=== PATIENT | male | born 1940 | race Caucasian/White ===

== ENCOUNTER 2018-10-19 13:03 | Inpatient (IN) | payer OTHER ==
[2018-10-19 13:24] LABS: Absolute Lymphocytes (CBC) 0.9 K/uL (0.7-4.9); Absolute Monocytes 0.5 K/uL (0.1-1.3); Absolute Neutrophil 6.1 K/uL (1.8-8.0); Basophils % 0.8 % (0-1.3); Eosinophils % 0.7 % (0-4.4); Hematocrit 51.9 % (39.6-49.0); Lymphocytes % 11.4 % (15.3-44.8); MPV 9.6 fL (7.6-11.3); Monocytes % 7.2 % (3.3-12.3); RBC Red Blood Cell Count 5.12 M/uL (4.33-5.43)
[2018-10-19] MEDS ORDERED: NA CHLORIDE 0.9% 250 ML ONE ×3 (13:33→14:26)
[2018-10-19 13:40] LABS: Troponin (Emerg Dept Use Only) 0.13 ng/mL (0.0-0.045)
[2018-10-19] MEDS ORDERED: FUROSEMIDE 20 MG TABLET ONE (14:04)
--- NOTE | 2018-10-19 14:25 | RAD REPORT ---
EXAM DESCRIPTION: RAD - Chest Single View - 10/19/2018 1:55 pm CLINICAL HISTORY: Dyspnea, shortness of breath COMPARISON: October 04, 2018 TECHNIQUE: AP portable chest image was obtained 1352 hours . FINDINGS: Lung volumes are low accentuating interstitial opacification. Cardiac silhouette is enlarg ed, again accentuated by shallow inspiration. Vasculature and interstitial markings overall are promi nent and favor a mild failure/ volume overload. No measurable pleural effusion and no pneumothorax. No acute bony abnormality seen. No acute aortic findings suspected. IMPRESSION: Mild CHF/volume overload pattern accentuated by body habitus, portable technique and sha llow inspiration.
--- NOTE | 2018-10-19 14:36 | EDPHYS ---
Physician Documentation [facility] Name: Bj Mills Age: 77 yrs Sex: Male : 1940 Arrival Date: 10/19/2018 Time: 13:04 Bed 4 Private MD: ED Physician Deng Joseph HPI: 10/19 13:17 This 77 yrs old Male presents to ER via EMS with complaints of Shortness Of rn Breath. 13:17 The patient has shortness of breath at rest, with light activity. Onset: The rn symptoms/episode began/occurred at an unknown time. Duration: The symptoms are continuous. The patient's shortness of breath is aggravated by exertion, light activity, walking. Associated signs and symptoms: Pertinent positives: non-productive cough, Pertinent negatives: chest pain, fever, hemoptysis, loss of consciousness. Severity of symptoms: At their worst the symptoms were moderate in the emergency department the symptoms have improved. The patient has experienced similar episodes in the past. The patient has been recently seen by a physician:. EMS reports patient had just gotten back from cardiology appt, fell to ground because sob and weakness, no LOC, no injury from fall, called for lift assist, but EMS noted dyspnea and couldn't walk back to house alone without rest and assistance. O2 sat was 87%, placed on CPAP after couldn't tolerate BIPAP, feels a little better. . Historical: - Allergies: 13:10 No Known Allergies; hj - Home Meds: 13:10 Novolin N 100 unit/mL Sub-Q susp twice a day [Active]; Plavix 75 mg Oral tab 1 tab once hj daily [Active]; isosorbide mononitrate 60 mg Oral Tb24 1 tab once daily [Active]; metoprolol tartrate 50 mg Oral tab 25 mg 2 times per day [Active]; furosemide 40 mg Oral tab 1 tab once daily [Active]; glimepiride 4 mg Oral tab 1 tab once daily [Active]; aspirin 81 mg Oral chew 1 tab once daily [Active]; citalopram 20 mg tab 1 tab once daily [Active]; [place] 10-325 mg Oral tab 1 tab twice a day [Active]; fentanyl 50 mcg/hr Topical pt72 1 patch every 72 hours [Active]; simvastatin 20 mg Oral tab 1 tab once daily [Active]; lisinopril 5 mg Oral tab 1 tab once daily [Active]; - PMHx: 13:10 Diabetes - NIDDM; hj 13:10 Hypertension; Hyperlipidemia; hj - PSHx: 13:10 None; hj - Immunization history:: Adult Immunizations not immunized. - Social history:: Smoking status: Patient/guardian denies using tobacco, Patient/guardian denies using alcohol. - Ebola Screening: : Patient negative for fever greater than or equal to 101.5 degrees Fahrenheit, and additional compatible Ebola Virus Disease symptoms Patient denies exposure to infectious person Patient denies travel to an Ebola-affected area in the 21 days before illness onset. - Family history:: not pertinent. - Hospitalizations: : No recent hospitalization is reported. ROS: 13:17 Constitutional: Negative for fever, chills, and weight loss, Eyes: Negative for injury, rn pain, redness, and discharge, Neck: Negative for injury, pain, and swelling, Cardiovascular: Negative for chest pain, palpitations,+ mild swelling Respiratory: + sob and cough Abdomen/GI: Negative for abdominal pain, nausea, vomiting, diarrhea, and constipation, MS/Extremity: Negative for injury and deformity, Skin: Negative for injury, rash, and discoloration, Neuro: + generalized weakness, no focal weakness or paresthesias Exam: 13:14 ECG was reviewed by the Attending Physician. rn 13:17 Constitutional: This is a well developed, well nourished patient who is awake, alert, rn on CPAP and requires assistance moving into bed from stretcher. Head/Face: Normocephalic, atraumatic. Eyes: Pupils equal round and reactive to light, extra-ocular motions intact. Lids and lashes normal. Conjunctiva and sclera are non-icteric and not injected. Cornea within normal limits. Periorbital areas with no swelling, redness, or edema. ENT: dry MM, no stridor Cardiovascular: Regular rate and rhythm. No pulse deficits. Respiratory: + mild tachypnea with diminished breath sounds at bases. Abdomen/GI: soft, non-tender MS/ Extremity: Pulses equal, no cyanosis. Neurovascular intact. Full, normal range of motion. Equal circumference. Neuro: Awake and alert, GCS 15, oriented to person, place, time, and situation. Cranial nerves II-XII grossly intact. Motor strength 5/5 in all extremities. Sensory grossly intact. Vital Signs: 13:12 BP 89 / 62; Pulse 74; Resp 24; Temp 97.4(O); Pulse Ox 97% on Nebulizer Mask; Weight hj 120.2 kg; Height 6 ft. 3 in. (190.50 cm); Pain 0/10; 13:34 BP 95 / 62; Pulse 76; Resp 20; Pulse Ox 96% on Nebulizer Mask; hj 13:45 BP 106 / 86; Pulse 88; Resp 18; Pulse Ox 98% on Nebulizer Mask; hj 13:49 Pulse Ox 97% on 2 lpm NC; hj 14:01 BP 79 / 89; Pulse 76; Resp 18; Pulse Ox 96% on 4 lpm NC; hj 14:08 BP 90 / 57; Pulse 77; Resp 18; Pulse Ox 93% on 4 lpm NC; hj 14:24 BP 104 / 89; Pulse 73; Resp 18; Pulse Ox 93% on 4 lpm NC; hj 14:43 BP 101 / 66; Pulse 76; Resp 18; Pulse Ox 93% on 4 lpm NC; hj 14:59 BP 102 / 56; Pulse 76; Resp 18; Pulse Ox 94% on 4 lpm NC; hj 13:12 Body Mass Index 33.12 (120.20 kg, 190.50 cm) hj MDM: 13:05 Patient medically screened. rn 14:33 Differential diagnosis: Anemia CHF exacerbation, Chronic Obstructive Pulmonary Disease rn Myocardial Infarction pneumonia, pulmonary edema, reactive airway disease. Data reviewed: vital signs, nurses notes, lab test result(s), EKG, radiologic studies, plain films, and as a result, I will admit patient. Counseling: I had a detailed discussion with the patient and/or guardian regarding: the historical points, exam findings, and any diagnostic results supporting the discharge/admit diagnosis, lab results, radiology results, the need for further work-up and treatment in the hospital. Response to treatment: the patient's symptoms have mildly improved after treatment, and as a result, I will admit patient. ED course: Pt with pulmonary edema, O2 87%, seen by Dr Villatoro recently and ECHO performed but unable to walk, no oxygen at home, will admit for further care. Improved BP with NS. . 10/19 13:06 Order name: BMP; Complete Time: 13:46 rn 04/04 13:06 Order name: CBC with Diff; Complete Time: 13:46 rn 10/19 13:06 Order name: XRAY CXR (1 view); Complete Time: 14:27 rn 10/19 13:06 Order name: NT PRO-BNP; Complete Time: 13:46 rn 10/19 13:06 Order name: Troponin (emerg Dept Use Only); Complete Time: 13:46 rn 10/19 13:06 Order name: EKG; Complete Time: 13:06 rn 10/19 13:06 Order name: Cardiac monitoring; Complete Time: 13:10 rn 10/19 13:06 Order name: EKG - Nurse/Tech; Complete Time: 13:10 rn 10/19 13:06 Order name: IV Saline Lock; Complete Time: 13:10 rn 10/19 13:06 Order name: Labs collected and sent; Complete Time: 13:23 rn 10/19 13:06 Order name: O2 Per Protocol; Complete Time: 13:10 rn 10/19 13:06 Order name: O2 Sat Monitoring; Complete Time: 13:10 rn EC:14 Rate is 76 beats/min. Rhythm is regular. QRS interval is normal. QT interval is rn prolonged. No Q waves. T waves are Normal. No ST changes noted. Clinical impression: NSR w/ Non-specific ST/T Changes. Interpreted by me. Administered Medications: 13:17 Drug: NS 0.9% 250 ml Route: IV; Rate: 1 bolus; Site: left wrist; hj 14:18 Follow up: IV Status: Completed infusion hj 13:49 Drug: LaSIX 20 mg Route: PO; hj 14:17 Follow up: Response: No adverse reaction hj 13:58 Drug: NS 0.9% 250 ml Route: IV; Rate: bolus; Site: left wrist; hj 14:18 Follow up: IV Status: Completed infusion hj 14:17 Drug: NS 0.9% 250 ml Route: IV; Rate: bolus; Site: left wrist; hj 14:34 Drug: Tylenol 650 mg Route: PO; hj 14:45 Follow up: Response: No adverse reaction; Pain is decreased hj Disposition: 10/19/18 14:35 Hospitalization ordered by Lucian Marsh for Inpatient Admission. Preliminary diagnosis are Pulmonary edema, Hypoxemia, Unspecified combined systolic (congestive) and diastolic (congestive) heart failure. - Bed requested for Telemetry/MedSurg (Inpatient). - Status is Inpatient Admission. hj - Condition is Stable. - Problem is an ongoing problem. - Symptoms have improved. UTI on Admission? No Signatures: Dispatcher [employer] EDDeng Schumacher MD MD rn Joaquin, Henry, RN RN hj Botello, Elizabeth eb Corrections: (The following items were deleted from the chart) 13:28 13:10 Home Meds: Unable to obtain; hj hj 15:02 14:35 Hospitalization Ordered by Lucian Marsh MD for Inpatient Admission. Preliminary eb diagnosis is Pulmonary edema; Hypoxemia; Unspecified combined systolic (congestive) and diastolic (congestive) heart failure. Bed requested for Telemetry/MedSurg (Inpatient). Status is Inpatient Admission. Condition is Stable. Problem is an ongoing problem. Symptoms have improved. UTI on Admission? No. rn 15:52 15:02 10/19/2018 14:35 Hospitalization Ordered by Lucian Marsh MD for Inpatient Admission. Preliminary diagnosis is Pulmonary edema; Hypoxemia; Unspecified combined systolic (congestive) and diastolic (congestive) heart failure. Bed requested for Telemetry/MedSurg (Inpatient). Status is Inpatient Admission. Condition is Stable. Problem is an ongoing problem. Symptoms have improved. UTI on Admission? No. eb
--- NOTE | 2018-10-19 14:36 | ER ---
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 Transition of care: patient was not received from another setting of care. Onset of symptoms was October 19, 2018. Risk Assessment: Do you want to hurt yourself or someone else? Patient reports no desire to harm self or others. Initial Sepsis Screen: Does the patient meet any 2 criteria? Yes Does the patient have a suspected source of infection? Yes:. Care prior to arrival: None. 13:05 Method Of Arrival: EMS: [facility] 13:05 Acuity: SIMRAN 2 hj Triage Assessment: 13:11 General: Appears in no apparent distress. uncomfortable, Behavior is calm, cooperative, hj appropriate for age. Respiratory: Reports shortness of breath labored breathing Onset: The symptoms/episode began/occurred today, the patient has severe shortness of breath. Historical: - Allergies: 13:10 No Known Allergies; hj - Home Meds: 13:10 Novolin N 100 unit/mL Sub-Q susp twice a day [Active]; Plavix 75 mg Oral tab 1 tab once hj daily [Active]; isosorbide mononitrate 60 mg Oral Tb24 1 tab once daily [Active]; metoprolol tartrate 50 mg Oral tab 25 mg 2 times per day [Active]; furosemide 40 mg Oral tab 1 tab once daily [Active]; glimepiride 4 mg Oral tab 1 tab once daily [Active]; aspirin 81 mg Oral chew 1 tab once daily [Active]; citalopram 20 mg tab 1 tab once daily [Active]; [place] 10-325 mg Oral tab 1 tab twice a day [Active]; fentanyl 50 mcg/hr Topical pt72 1 patch every 72 hours [Active]; simvastatin 20 mg Oral tab 1 tab once daily [Active]; lisinopril 5 mg Oral tab 1 tab once daily [Active]; - PMHx: 13:10 Diabetes - NIDDM; hj 13:10 Hypertension; Hyperlipidemia; hj - PSHx: 13:10 None; hj - Immunization history:: Adult Immunizations not immunized. - Social history:: Smoking status: Patient/guardian denies using tobacco, Patient/guardian denies using alcohol. - Ebola Screening: : Patient negative for fever greater than or equal to 101.5 degrees Fahrenheit, and additional compatible Ebola Virus Disease symptoms Patient denies exposure to infectious person Patient denies travel to an Ebola-affected area in the 21 days before illness onset. - Family history:: not pertinent. - Hospitalizations: : No recent hospitalization is reported. Screenin:11 Abuse screen: Denies threats or abuse. Denies injuries from another. Nutritional hj screening: No deficits noted. Tuberculosis screening: No symptoms or risk factors identified. Fall Risk Fall in past 12 months (25 points). Assessment: 13:11 Pain: Denies pain. Cardiovascular: Rhythm is regular. Respiratory: Airway is hj compromised Trachea midline Respiratory effort is labored, Respiratory pattern is regular, tachypnea Breath sounds are diminished bilaterally. 13:11 General: Appears in no apparent distress. uncomfortable, Behavior is calm, cooperative, hj appropriate for age. Neuro: Level of Consciousness is awake, alert, obeys commands, Oriented to person, place, time, situation, Appropriate for age. GI: No signs and/or symptoms were reported involving the gastrointestinal system. : No signs and/or symptoms were reported regarding the genitourinary system. EENT: No signs and/or symptoms were reported regarding the EENT system. Derm: No signs and/or symptoms reported regarding the dermatologic system. Musculoskeletal: No signs and/or symptoms reported regarding the musculoskeletal system. 13:38 Reassessment: Patient and/or family updated on plan of care and expected duration. Pain hj level reassessed. Patient is alert, oriented x 3, equal unlabored respirations, skin warm/dry/pink. awaiting results and POC; provider in room with ;. 13:48 Reassessment: Patient and/or family updated on plan of care and expected duration. Pain hj level reassessed. Patient is alert, oriented x 3, equal unlabored respirations, skin warm/dry/pink. Patient states feeling better. Patient states symptoms have improved. 14:08 Reassessment: awaiting results;. hj 14:59 Reassessment: Patient and/or family updated on plan of care and expected duration. Pain hj level reassessed. Patient is alert, oriented x 3, equal unlabored respirations, skin warm/dry/pink. awaiting room placement;. Vital Signs: 13:12 BP 89 / 62; Pulse 74; Resp 24; Temp 97.4(O); Pulse Ox 97% on Nebulizer Mask; Weight hj 120.2 kg; Height 6 ft. 3 in. (190.50 cm); Pain 0/10; 13:34 BP 95 / 62; Pulse 76; Resp 20; Pulse Ox 96% on Nebulizer Mask; hj 13:45 BP 106 / 86; Pulse 88; Resp 18; Pulse Ox 98% on Nebulizer Mask; hj 13:49 Pulse Ox 97% on 2 lpm NC; hj 14:01 BP 79 / 89; Pulse 76; Resp 18; Pulse Ox 96% on 4 lpm NC; hj 14:08 BP 90 / 57; Pulse 77; Resp 18; Pulse Ox 93% on 4 lpm NC; hj 14:24 BP 104 / 89; Pulse 73; Resp 18; Pulse Ox 93% on 4 lpm NC; hj 14:43 BP 101 / 66; Pulse 76; Resp 18; Pulse Ox 93% on 4 lpm NC; hj 14:59 BP 102 / 56; Pulse 76; Resp 18; Pulse Ox 94% on 4 lpm NC; hj 13:12 Body Mass Index 33.12 (120.20 kg, 190.50 cm) hj ED Course: 13:04 Patient arrived in ED. ss 13:05 Deng Joseph MD is Attending Physician. rn 13:05 Edgar Chamberlain RN is Primary Nurse. hj 13:07 Triage completed. hj 13:12 Arm band placed on right wrist. hj 13:12 Patient has correct armband on for positive identification. Placed in gown. Bed in low hj position. Call light in reach. Side rails up X 1. 13:23 Inserted saline lock: 20 gauge in left wrist, using aseptic technique. pc1 13:23 EKG done, by control valve technician. reviewed by Deng Joseph MD. sm3 13:56 XRAY CXR (1 view) In Process Unspecified. EDMS 14:35 Lucian Marsh MD is Hospitalizing Provider. rn Administered Medications: 13:17 Drug: NS 0.9% 250 ml Route: IV; Rate: 1 bolus; Site: left wrist; hj 14:18 Follow up: IV Status: Completed infusion hj 13:49 Drug: LaSIX 20 mg Route: PO; hj 14:17 Follow up: Response: No adverse reaction hj 13:58 Drug: NS 0.9% 250 ml Route: IV; Rate: bolus; Site: left wrist; hj 14:18 Follow up: IV Status: Completed infusion hj 14:17 Drug: NS 0.9% 250 ml Route: IV; Rate: bolus; Site: left wrist; hj 14:34 Drug: Tylenol 650 mg Route: PO; hj 14:45 Follow up: Response: No adverse reaction; Pain is decreased hj Outcome: 14:35 Decision to Hospitalize by Provider. rn 15:52 Patient left the ED. hj Signatures: Dispatcher [employer] EDMS Deng Joseph MD MD rn Smirch, Shelby, RN RN ss Edgar hCamberlain RN RN Chapis Burt sm3 Martell Vázquez pc1 Corrections: (The following items were deleted from the chart) 13:28 13:10 Home Meds: Unable to obtain; hj hj 14:16 14:08 BP 90 / 57; Pulse 77bpm; Resp 18bpm; Pulse Ox 98% 4 lpm Nasal Cannula; hj hj
[2018-10-19] MEDS ORDERED: ACETAMINOPHEN 325 MG TABLET ONE (14:45)
[2018-10-19] MEDS ORDERED: IPRATROPIUM BROM 0.5MG/2.5ML NEB PRN (15:55)
[2018-10-19] MEDS ORDERED: ALBUTEROL 2.5 MG/3 ML NEB SOL NEB PRN (15:55)
[2018-10-19] MEDS ORDERED: ONDANSETRON 4 MG/2 ML VIAL IV PRN (15:55)
[2018-10-19] MEDS ORDERED: GLUCAGON 1 MG/VIAL IM PRN (18:20)
[2018-10-19] MEDS ORDERED: D50W 25 GM/50 ML SYRINGE IV PRN (18:20)
[2018-10-19] MEDS ORDERED: FENTANYL 50 MCG/PATCH TD SCH (19:00)
[2018-10-19] MEDS: ATORVASTATIN 10 MG TAB PO SCH (20:29)
[2018-10-19] MEDS: INSULIN -REGULAR HUMAN 50 UNIT/0.5 ML ML SQ SCH (20:56)
[2018-10-19] MEDS ORDERED: HOME MED 1 EA UNK (Simvastatin [Simvastatin] 20 MG) PO SCH (21:00)
[2018-10-19 22:05] LABS: Urine Appearance CLEAR; Urine Bilirubin NEGATIVE (NEG); Urine Blood NEGATIVE (NEG); Urine Color YELLOW; Urine Glucose NEGATIVE (NEG); Urine Protein 2+ (NEG); Urine Specific Gravity 1.015 (1.005-1.030)
[2018-10-19 22:17] LABS: Urine Microscopic Reflex ORDER UMIC
[2018-10-19 22:31] LABS: Urine Bacteria 20-50 /HPF (NONE SEEN); Urine Culture Reflex Order REFLEXED; Urine Mucus 2+ /HPF (NONE SEEN); Urine RBC <5 /HPF (NONE SEEN)
[2018-10-20 04:59] LABS: Potassium 4.5 mmol/L (3.5-5.1)
[2018-10-20] MEDS: INSULIN -REGULAR HUMAN 50 UNIT/0.5 ML ML SQ SCH ×4 (07:30→20:56)
[2018-10-20] MEDS ORDERED: ACETYLCYST 20% 800 MG/4 ML VIAL PO ONE (07:42)
--- NOTE | 2018-10-20 08:57 | ECHO ---
HEIGHT: 6 ft 3 in WEIGHT: 265 lb 0 oz DATE OF STUDY: 10/20/[address]: Freddy Villatoro MD 2-DIMENSIONAL: YES M.MODE: YES DOPPLER: YES COLOR FLOW: YES TDS: NO PORTABLE: NO DEFINITY: NO BUBBLE STUDY: NO DIAGNOSIS: EVALUATE LEFT VENTRICULAR EJECTION FRACTION CARDIAC HISTORY: CATHERIZATION: YES SURGERY: NO PROSTHETIC VALVE: NO PACEMAKER: NO MEASUREMENTS (cm) DIASTOLIC (NORMALS) SYSTOLIC (NORMALS) IVSd 1.3 (0.6-1.2) LA Diam (1.9-4.0) LVEF 60-69% LVIDd 3.9 (3.5-5.7) LVIDs 3.0 (2.0-3.5) %FS 23% LVPWd 1.3 (0.6-1.2) Ao Diam 3.4 (2.0-3.7) 2 DIMENSIONAL ASSESSMENT: RIGHT ATRIUM: DILATED LEFT ATRIUM: DILATED RIGHT VENTRICLE: DILATED LEFT VENTRICLE: LEFT VENTRICULAR HYPERTROPHY TRICUSPID VALVE: NORMAL MITRAL VALVE: NORMAL PULMONIC VALVE: NORMAL AORTIC VALVE: TRILEAFLET, MILD THICKENING PERICARDIAL EFFUSION: NONE AORTIC ROOT: NORMAL LEFT VENTRICULAR WALL MOTION: NORMAL DOPPLER/COLOR FLOW: MILD TRICUSPID REGURGITATION. MILD PULMONARY HYPERTENSION. ESTIMATED RIGHT VENTRICULAR SYSTOLIC PRESSURE 43 mmHg. COMMENTS: NORMAL LEFT VENTRICULAR EJECTION FRACTION. LEFT VENTRICULAR HYPERTROPHY. DILATED LEFT ATRIUM, RIGHT ATRIUM AND RIGHT VENTRICLE. AORTIC SCLEROSIS WITH NO AORTIC STENOSIS OR AORTIC REGURGITATION. TECHNOLOGIST: Agustina NELSON
[2018-10-20] MEDS ORDERED: LIDOCAINE 1% MPF 5 ML VIAL ONE (08:58)
[2018-10-20] MEDS ORDERED: HEPA 1000U/500MLS 2,000 UNIT/1,000 ML BAG IV ONE (08:58)
[2018-10-20] MEDS ORDERED: HOME MED 1 EA UNK (Citalopram Hydrobromide [Citalopram Hbr] 20 MG) PO SCH (09:00)
[2018-10-20] MEDS ORDERED: ASPIRIN 81 MG CHEWABLE TABLET PO SCH (09:00)
[2018-10-20] MEDS ORDERED: CITALOPRAM 10 MG TABLET PO SCH (09:00)
[2018-10-20] MEDS ORDERED: CLOPIDOGREL 75 MG TABLET PO SCH (09:00)
[2018-10-20] MEDS ORDERED: NA CHLORIDE 0.9% 500 ML ONE (09:40)
[2018-10-20] MEDS ORDERED: HEPARIN 5000 UNIT/ML 1 ML VIAL ONE (09:53)
[2018-10-20] MEDS ORDERED: FENTANYL CITR 100 MCG/2 ML ONE (09:53)
[2018-10-20] MEDS ORDERED: MIDAZOLAM HCL 2 MG/2 ML INJ ONE (09:53)
[2018-10-20] MEDS ORDERED: NITROGLYCERIN 100 MCG/ML SYR (for cath lab use only) IV ONE (09:54)
[2018-10-20] MEDS ORDERED: NA CHLORIDE 0.9% 0 ML IV ONE (09:54)
[2018-10-20] MEDS ORDERED: NICARDIPINE HCL 25 MG/10 ML IV ONE (09:54)
[2018-10-20] MEDS ORDERED: ATROPINE SULF 1 MG/10 ML SYR IV ONE (09:54)
[2018-10-20] MEDS ORDERED: NITROGLYCERIN/D5W 25 MG/250 ML BTL IV ONE (09:54)
--- NOTE | 2018-10-20 12:27 | CON ---
History Of Present Illness: Mr. Mills is 77, he came to the hospital because he was trying to get himself into a pickup truck, struggled, got weak and fell to the ground. EMS was called. He was br ought here. Denies having any chest pain, but his x-ray showed possible pulmonary edema, although it noted there is a possibility that it is under-penetration, poor inspiratory effort and a portable te chnique that made it look like that Mr. Mills has a history of CAD. He had a cardiac cath and rosita nt in 2005. Since then, nobody has looked at his heart. He has diabetes, obesity, renal insufficien cy, hypertension, dyslipidemia. Outpatient, he takes simvastatin, lisinopril, Lasix, Plavix, aspirin , fentanyl, insulin, hydrocodone, citalopram, glimepiride, metoprolol, isosorbide mononitrate. I saw him 2 days ago in my office and stopped one of his medicines Cardizem because of symptoms that sound like heart failure and symptoms of dizziness with demonstrated hypotension. His blood pressure has been better since we stopped cardia, so I continue to think it was a correct thing to do to stop card ia. We need to do an echo, need to do a cardiac cath. He will be at risk of developing worsening re nal function after the cardiac cath. His creatinine is 1.98. It is in this situation where unstable heart disease could be a more serious problem very quickly if we do not do everything that is possib le to improve that. So, I recommend a cardiac cath, possible stent. We will do an echocardiogram to minimize the amount of contrast as much as possible. The patient seems to understand the procedure, potential benefits, indications, risks, and agrees to proceed. Physical Examination: Lungs: His lungs are clear. Heart: Reveals a regular rate and rhythm. Vital Signs: Blood pressure is 108/55, heart rate 86, temperature 98.1. I would recommend that we do a cardiac cath later today. JOHN/ELIDA Voice ID: [id number] Report ID: [id number]
[2018-10-20] MEDS: ATORVASTATIN 10 MG TAB PO SCH (20:55)
--- NOTE | 2018-10-20 22:51 | OP ---
Surgeon: Freddy Villatoro MD Procedures: Left heart catheterization, coronary angiography. No LV gram was done. Findings: The patient has severe 3-vessel CAD and needs bypass surgery. His right coronary artery h as a 70% ostial stenosis in the midportion, sequential 90% stenosis. There is an old stent in the re gion and the ostium of the posterior descending artery has a 90% stenosis. The left main is very irr egular, free of any significant stenosis. The circumflex is large, ectatic, irregular, but no signif icant stenosis. The ostium of the LAD has a 70% stenosis. The mid LAD has a 70% stenosis. The osti um of the ramus intermedius artery, a very large artery, has an ostial 70% stenosis. Left ventriculo gram was not done, but we measured pressures and found the left ventricular end-diastolic pressure at 0, no pullback gradient, normal pressures. Procedure In Detail: The patient was brought to the cardiac medical laboratory technicians in a fasting state. He had williams dence of a non-ST elevation SC associated with a fall. Prepared and draped in usual sterile fashion, sedated with Versed and fentanyl. Right radial approach was used. Right radial artery was identifi ed through palpation, anesthetized with 1% lidocaine, entered with a 21-gauge needle, cannulated with a 0.021 inch diameter guidewire. A 6-[place] Terumo sheath was used. As soon as the sheath was in p lace, it was flushed and we gave the radial cocktail consisting of nicardipine, heparin, nitroglyceri n. The TIG catheter was guided into the ascending aorta and allowed us to measure LV pressures, eliazar ogram of the right coronary artery and left coronary artery. At the end of the procedure, the cathet er was removed, sheath was removed, and the arteriotomy was closed with a TR band. Estimated Blood Loss: 5 cc. Complications: None. Water Quality Control Engineer: Gilles Carrillo. GERRY Voice ID: [id number] Report ID: [id number]
--- NOTE | 2018-10-21 01:10 | HP ---
Date of Admission: 10/19/2018 Chief Complaint: Chest pain, shortness of breath. History Of Present Illness: A 77-year-old male was brought to the emergency room because of shortnes s of breath and chest pain. The patient's evaluation showed evidence of heart failure as well as namita vated troponin. The patient is admitted. The patient denied any history of fever, chills, rigors. Past Medical History: Extensive, includes history of type 2 diabetes requiring insulin, hypertension , history of osteoarthritis. Surgical History: Negative. Home Medicines: Please refer to the chart. Review of Systems: The patient denied any history of fever, chills, rigors. Physical Examination: General: Revealed a 77-year-old male, not in acute distress. HEENT: Negative. Neck: Supple. JVD positive. Chest: Scattered wheezes bilaterally. Heart: Irregularity noted. Abdomen: Soft. Extremities: Mild pedal edema. Laboratory Data: Troponin over 3. White count, hemoglobin normal. Chem profile; BUN 35, creatinine 1.9. Chest x-ray, pulmonary congestion. Assessment: 1.Nontransmural IN. 2.Congestive heart failure. 3.Type 2 diabetes. 4.Chronic renal failure. 5.Osteoarthritis. Plan: The patient is scheduled for cardiac cath today to see his coronary anatomy. There is Cardiol ogy consult. Meanwhile, the patient will be put on insulin sliding scale. His blood pressure is low . Some of his medications will be on hold. WILBER/ELIDA Voice ID: [id number]
[2018-10-22] MEDS ORDERED: HOME MED 1 EA UNK (Fentanyl [Duragesic] 1 EACH) TD SCH (09:00)
--- NOTE | 2018-10-24 11:22 | EKG ---
Test Date: 2018-10-19 Test Time: 13:06:48 Public Message Service Supervisor: BRIDGETTE MEASUREMENT RESULTS: Intervals: Rate: 76 ID: [id number] QRSD: 100 QT: 460 QTc: 517 [place]: P: 79 ID: [id number] QRS: 126 T: 140 INTERPRETIVE STATEMENTS: Normal sinus rhythm Cannot rule out Anterior infarct, age undetermined Prolonged QT Abnormal ECG Compared to ECG 09/04/2006 06:12:20 Prolonged QT interval now present Sinus tachycardia no longer present Ventricular premature complex(es) no longer present Atrial premature complex(es) no longer present Myocardial infarct finding still present Electronically Signed On 10-19-18 16:26:11 CDT by Freddy Villatoro
== END 2018-10-20 21:21 | disposition short-term general hospital (02) | DRG 282 ==
LOC: ER 13:03 → ERHOLD 14:43 → 2ND 15:33
PROVIDERS: ADMIT Internal Medicine; ATTEND Internal Medicine
PROC: 4A023N7 Measurement of Cardiac Sampling and Pressure, Left Heart, Percutaneous Approach (ICD-10-PCS; principal; 2018-10-20)
PROC: B211YZZ Fluoroscopy of Multiple Coronary Arteries using Other Contrast (ICD-10-PCS; 2018-10-20)
DX: I21.4 Non-ST elevation (NSTEMI) myocardial infarction (principal); I25.10 Atherosclerotic heart disease of native coronary artery without angina pectoris; Z95.5 Presence of coronary angioplasty implant and graft; E11.9 Type 2 diabetes mellitus without complications; Z79.4 Long term (current) use of insulin; M19.90 Unspecified osteoarthritis, unspecified site; E78.5 Hyperlipidemia, unspecified
CPT/HCPCS: 36415; 71045; 80048; 81003; 81015; 82962; 83880; 84484; 85025; 87086; 87088; 93005; 93306; 93458; 96365; 99284; C1893; J0583; J1644; J2250; J3010

== ENCOUNTER 2019-01-28 18:21 | Inpatient (IN) | payer OTHER ==
--- OUTSIDE RECORDS SUMMARY | 2019-01-28 18:24 | XMS REPORT | Clinical Summary ---
:1940 Author Organization [facility] Address [address] [place] [address] Care Team Providers Name Role Phone Asked, No Pcp Primary Care Provider Unavailable Allergies No Known Allergies Medications Medication Sig Dispensed Refills Start Date End Date Status HYDROcodone-acetami Take 1 tablet 0 Active nophen (NORCO) by mouth 2 10-325 mg per (two) times a tablet day. aspirin (ECOTRIN) Take 81 mg by 0 Active 81 MG enteric mouth daily. coated tablet citalopram (CeleXA) Take 20 mg by 0 Active 20 MG tablet mouth daily. fentaNYL Place 1 patch 0 Active (DURAGESIC) 25 on the skin mcg/hr every third day. glimepiride Take 4 mg by 0 Active (AMARYL) 4 MG mouth 2 (two) tablet times a day. insulin NPH Inject 40 0 Active (HumuLIN-N) 100 Units under unit/mL injection the skin daily before dinner. isosorbide Take 60 mg by 0 Active mononitrate (IMDUR) mouth daily. 60 MG 24 hr tablet clopidogrel Take 75 mg by 0 Active (PLAVIX) 75 mg mouth daily. tablet metoprolol Take 0.5 30 tablet 10/28/2018 10/28/2019 Active succinate XL tablets (12.5 (TOPROL-XL) 25 mg mg total) by 24 hr tablet mouth 2 (two) times a day. atorvastatin Take 1 tablet 30 tablet 10/28/2018 10/28/2019 Active (LIPITOR) 80 MG (80 mg total) tablet by mouth nightly. furosemide (LASIX) Take 40 mg by 0 10/28/2018 Discontinued 40 mg tablet mouth 2 (two) times a day. lisinopril Take 5 mg by 0 10/28/2018 Discontinued (PRINIVIL,ZESTRIL) mouth nightly. 5 mg tablet simvastatin (ZOCOR) Take 20 mg by 0 10/28/2018 Discontinued 20 MG tablet mouth nightly. metoprolol Take 25 mg by 0 10/28/2018 Discontinued succinate XL mouth 2 (two) (TOPROL-XL) 25 mg times a day. 24 hr tablet atorvastatin Take 1 tablet 30 tablet 11 10/27/2018 10/28/2018 Discontinued (LIPITOR) 80 MG (80 mg total) tablet by mouth nightly. metoprolol Take 0.5 30 tablet 11 10/27/2018 10/28/2018 Discontinued succinate XL tablets (12.5 (TOPROL-XL) 25 mg mg total) by 24 hr tablet mouth 2 (two) times a day. torsemide (DEMADEX) Take 1 tablet 28 tablet 0 10/27/2018 10/28/2018 Discontinued 20 MG tablet (20 mg total) by mouth 2 (two) times a day for 14 days. torsemide (DEMADEX) Take 1 tablet 28 tablet 0 10/28/2018 11/11/2018 20 MG tablet (20 mg total) by mouth 2 (two) times a day for 14 days. 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 Never 10/20/2018 How many drinks containing alcohol do you have on a typical Not asked day when you are drinking? How often do you have six or more drinks on one occasion? Not asked Sex Assigned at Date Recorded Not on file Job Start Date Occupation Industry Not on file Not on file Not on file Travel History Travel Start Travel End No recent travel history available. Last Filed Vital Signs Vital Sign Reading Time Taken Blood Pressure 100/58 10/28/2018 7:45 PM CDT Pulse 91 10/28/2018 7:45 PM CDT Temperature 36.3 C (97.3 F) 10/28/2018 7:45 PM CDT Respiratory Rate 18 10/28/2018 7:45 PM CDT Oxygen Saturation 98% 10/28/2018 7:45 PM CDT Inhaled Oxygen Concentration - - Weight 126 kg (278 lb 11.2 oz) 10/27/2018 5:00 AM CDT Height - - Body Mass Index - - Plan of Treatment Health Maintenance Due Date Last Done Comments DIABETIC RETINAL EYE EXAM 1940 DIABETIC FOOT EXAM 1950 URINE MICROALBUMIN 1952 COLONOSCOPY SCREENING 1992 SHINGLES VACCINES (#1) 1992 65+ PNEUMOCOCCAL VACCINE (1 of 2 - PCV13) 12/30/2007 INFLUENZA VACCINE 02/15/2019 Procedures Procedure Name Priority Date/Time Associated Comments Diagnosis POC GLUCOSE Routine 10/28/2018 5:26 Results for this PM CDT procedure are in the results section. POC GLUCOSE Routine 10/28/2018 11:46 Results for this AM CDT procedure are in the results section. POC GLUCOSE Routine 10/28/2018 7:47 Results for this AM CDT procedure are in the results section. POC GLUCOSE Routine 10/27/2018 8:54 Results for this PM CDT procedure are in the results section. POC GLUCOSE Routine 10/27/2018 5:30 Results for this PM CDT procedure are in the results section. POC GLUCOSE Routine 10/27/2018 11:37 Results for this AM CDT procedure are in the results section. POC GLUCOSE Routine 10/27/2018 7:18 Results for this AM CDT procedure are in the results section. POC GLUCOSE Routine 10/26/2018 8:53 Results for this PM CDT procedure are in the results section. POC GLUCOSE Routine 10/26/2018 5:16 Results for this PM CDT procedure are in the results section. POC GLUCOSE Routine 10/26/2018 12:15 Results for this PM CDT procedure are in the results section. XR CHEST 1 VW PORTABLE STAT 10/26/2018 11:11 Results for this AM CDT procedure are in the results section. ESTIMATED GFR Routine 10/26/2018 10:06 Results for this AM CDT procedure are in the results section. BASIC METABOLIC PANEL Routine 10/26/2018 10:06 Results for this AM CDT procedure are in the results section. POC GLUCOSE Routine 10/26/2018 7:44 Results for this AM CDT procedure are in the results section. POC GLUCOSE Routine 10/25/2018 9:03 Results for this PM CDT procedure are in the results section. POC GLUCOSE Routine 10/25/2018 5:13 Results for this PM CDT procedure are in the results section. POC GLUCOSE Routine 10/25/2018 11:50 Results for this AM CDT procedure are in the results section. POC GLUCOSE Routine 10/25/2018 7:46 Results for this AM CDT procedure are in the results section. ESTIMATED GFR Routine 10/25/2018 4:14 Results for this AM CDT procedure are in the results section. BASIC METABOLIC PANEL Routine 10/25/2018 4:14 Results for this AM CDT procedure are in the results section. HC COMPLETE BLD COUNT Routine 10/25/2018 4:00 Results for this W/AUTO DIFF AM CDT procedure are in the results section. POC GLUCOSE Routine 10/24/2018 8:49 Results for this PM CDT procedure are in the results section. POC GLUCOSE Routine 10/24/2018 5:10 Results for this PM CDT procedure are in the results section. POC GLUCOSE Routine 10/24/2018 1:06 Results for this PM CDT procedure are in the results section. US ABDOMINAL WITH LIVER Routine 10/24/2018 9:17 Results for this ELASTOGRAPHY AM CDT procedure are in the results section. POC GLUCOSE Routine 10/24/2018 7:45 Results for this AM CDT procedure are in the results section. HC COMPLETE BLD COUNT Routine 10/24/2018 4:23 Results for this W/AUTO DIFF AM CDT procedure are in the results section. SEDIMENTATION RATE Routine 10/24/2018 4:23 Results for this AM CDT procedure are in the results section. ESTIMATED GFR Routine 10/24/2018 4:00 Results for this AM CDT procedure are in the results section. IONIZED CALCIUM Routine 10/24/2018 4:00 Results for this AM CDT procedure are in the results section. PHOSPHORUS LEVEL Routine 10/24/2018 4:00 Results for this AM CDT procedure are in the results section. MAGNESIUM LEVEL Routine 10/24/2018 4:00 Results for this AM CDT procedure are in the results section. COMPREHENSIVE METABOLIC Routine 10/24/2018 4:00 Results for this PANEL AM CDT procedure are in the results section. US VEIN MAPPING LOWER Routine 10/23/2018 10:10 Results for this EXTREMITY BILATERAL PM CDT procedure are in the results section. POC GLUCOSE Routine 10/23/2018 8:59 Results for this PM CDT procedure are in the results section. NM LUNG VENTILATION STAT 10/23/2018 6:48 Results for this PERFUSION PM CDT procedure are in the results section. SCL-70 ANTIBODY Routine 10/23/2018 6:32 Results for this PM CDT procedure are in the results section. SS-B ANTIBODY Routine 10/23/2018 6:32 Results for this PM CDT procedure are in the results section. SS-A ANTIBODY Routine 10/23/2018 6:32 Results for this PM CDT procedure are in the results section. HIV AG/AB COMBINATION Routine 10/23/2018 6:31 Results for this PM CDT procedure are in the results section. CRP HIGH SENSITIVITY Routine 10/23/2018 6:31 Results for this PM CDT procedure are in the results section. LUIS CARLOS Routine 10/23/2018 6:31 Results for this PM CDT procedure are in the results section. POC GLUCOSE Routine 10/23/2018 5:49 Results for this PM CDT procedure are in the results section. POC GLUCOSE Routine 10/23/2018 11:54 Results for this AM CDT procedure are in the results section. US CAROTID DUPLEX Routine 10/23/2018 11:00 Results for this BILATERAL AM CDT procedure are in the results section. POC GLUCOSE Routine 10/23/2018 8:46 Results for this AM CDT procedure are in the results section. POC GLUCOSE Routine 10/23/2018 8:05 Results for this AM CDT procedure are in the results section. ESTIMATED GFR Routine 10/23/2018 4:00 Results for this AM CDT procedure are in the results section. T4, FREE Routine 10/23/2018 4:00 Results for this AM CDT procedure are in the results section. THYROID STIMULATING Routine 10/23/2018 4:00 Results for this HORMONE AM CDT procedure are in the results section. IONIZED CALCIUM Routine 10/23/2018 4:00 Results for this AM CDT procedure are in the results section. PHOSPHORUS LEVEL Routine 10/23/2018 4:00 Results for this AM CDT procedure are in the results section. MAGNESIUM LEVEL Routine 10/23/2018 4:00 Results for this AM CDT procedure are in the results section. COMPREHENSIVE METABOLIC Routine 10/23/2018 4:00 Results for this PANEL AM CDT procedure are in the results section. HC COMPLETE BLD COUNT Routine 10/23/2018 4:00 Results for this W/AUTO DIFF AM CDT procedure are in the results section. VITAMIN D 25 HYDROXY Routine 10/23/2018 12:00 Results for this LEVEL AM CDT procedure are in the results section. POC GLUCOSE Routine 10/22/2018 8:58 Results for this PM CDT procedure are in the results section. XR KNEE 1 OR 2 VW RIGHT STAT 10/22/2018 8:42 Results for this PM CDT procedure are in the results section. XR HIP 2-3 VIEWS RIGHT STAT 10/22/2018 8:41 Results for this PM CDT procedure are in the results section. XR ELBOW 2 VW RIGHT STAT 10/22/2018 8:41 Results for this PM CDT procedure are in the results section. XR ANKLE 2 VW RIGHT STAT 10/22/2018 8:41 Results for this PM CDT procedure are in the results section. CT HEAD WO CONTRAST STAT 10/22/2018 7:43 Results for this PM CDT procedure are in the results section. POC GLUCOSE Routine 10/22/2018 6:21 Results for this PM CDT procedure are in the results section. POC GLUCOSE Routine 10/22/2018 5:10 Results for this PM CDT procedure are in the results section. ECHOCARDIOGRAM 2D Routine 10/22/2018 1:58 Results for this COMPLETE W MMODE PM CDT procedure are in SPECTRAL COLOR DOPPLER the results (00329) section. POC GLUCOSE Routine 10/22/2018 11:39 Results for this AM CDT procedure are in the results section. ESTIMATED GFR Routine 10/22/2018 10:28 Results for this AM CDT procedure are in the results section. COMPREHENSIVE METABOLIC Routine 10/22/2018 10:28 Results for this PANEL AM CDT procedure are in the results section. POC GLUCOSE Routine 10/22/2018 8:45 Results for this AM CDT procedure are in the results section. B NATRIURETIC PEPTIDE Routine 10/22/2018 4:15 Results for this AM CDT procedure are in the results section. TROPONIN Routine 10/22/2018 4:10 Results for this AM CDT procedure are in the results section. ESTIMATED GFR Routine 10/22/2018 4:10 Results for this AM CDT procedure are in the results section. IONIZED CALCIUM Routine 10/22/2018 4:10 Results for this AM CDT procedure are in the results section. PHOSPHORUS LEVEL Routine 10/22/2018 4:10 Results for this AM CDT procedure are in the results section. MAGNESIUM LEVEL Routine 10/22/2018 4:10 Results for this AM CDT procedure are in the results section. COMPREHENSIVE METABOLIC Routine 10/22/2018 4:10 Results for this PANEL AM CDT procedure are in the results section. HC COMPLETE BLD COUNT Routine 10/22/2018 4:10 Results for this W/AUTO DIFF AM CDT procedure are in the results section. CREATININE LEVEL, Routine 10/21/2018 11:30 Results for this URINE, RANDOM PM CDT procedure are in the results section. PROTEIN, URINE, RANDOM Routine 10/21/2018 11:30 Results for this PM CDT procedure are in the results section. URINALYSIS, AUTOMATED Routine 10/21/2018 11:30 Results for this WITH MICROSCOPY PM CDT procedure are in the results section. POC GLUCOSE Routine 10/21/2018 9:05 Results for this PM CDT procedure are in the results section. POC GLUCOSE Routine 10/21/2018 6:23 Results for this PM CDT procedure are in the results section. POC GLUCOSE Routine 10/21/2018 11:10 Results for this AM CDT procedure are in the results section. POC GLUCOSE Routine 10/21/2018 7:35 Results for this AM CDT procedure are in the results section. XR CHEST 1 VW PORTABLE STAT 10/21/2018 7:00 Results for this AM CDT procedure are in the results section. HEMOGLOBIN A1C Routine 10/21/2018 1:42 Results for this AM CDT procedure are in the results section. HC COMPLETE BLD COUNT Routine 10/21/2018 1:42 Results for this W/AUTO DIFF AM CDT procedure are in the results section. ECG 12-LEAD STAT 10/21/2018 12:47 Results for this AM CDT procedure are in the results section. LIPID PANEL STAT 10/21/2018 12:40 Results for this AM CDT procedure are in the results section. HEMOGLOBIN A1C STAT 10/21/2018 12:40 Results for this AM CDT procedure are in the results section. ESTIMATED GFR STAT 10/21/2018 12:40 Results for this AM CDT procedure are in the results section. B NATRIURETIC PEPTIDE STAT 10/21/2018 12:40 Results for this AM CDT procedure are in the results section. TYPE AND SCREEN STAT 10/21/2018 12:40 Results for this AM CDT procedure are in the results section. MAGNESIUM LEVEL STAT 10/21/2018 12:40 Results for this AM CDT procedure are in the results section. PARTIAL THROMBOPLASTIN STAT 10/21/2018 12:40 Results for this TIME (PTT) AM CDT procedure are in the results section. PROTHROMBIN TIME WITH STAT 10/21/2018 12:40 Results for this INR AM CDT procedure are in the results section. TROPONIN STAT 10/21/2018 12:40 Results for this AM CDT procedure are in the results section. PHOSPHORUS LEVEL STAT 10/21/2018 12:40 Results for this AM CDT procedure are in the results section. LACTIC ACID LEVEL STAT 10/21/2018 12:40 Results for this AM CDT procedure are in the results section. CREATINE KINASE, TOTAL STAT 10/21/2018 12:40 Results for this (CPK) AM CDT procedure are in the results section. COMPREHENSIVE METABOLIC STAT 10/21/2018 12:40 Results for this PANEL AM CDT procedure are in the results section. CBC WITH PLATELET AND STAT 10/21/2018 12:40 Results for this DIFFERENTIAL AM CDT procedure are in the results section. POC GLUCOSE Routine 10/20/2018 11:42 Results for this PM CDT procedure are in the results section. after 01/27/2018 Results POC glucose (10/28/2018 5:26 PM CDT)Only the most recent of34 resultswithin the time period is included. POC glucose 115 (H) 65 - 99 mg/dL [facility] Comment: [facility] Notified RN Meter ID: [id number] Stucc[employer] Laborer: Shira Crain Specimen Performing Organization Address City/State/Zipcode Phone Number [facility] DEPARTMENT OF PATHOLOGY AND [address] [place] [id number] GENOMIC MEDICINE [address] [address] XR Chest 1 Vw Portable (10/26/2018 11:11 AM CDT)Only the most recent of2 resultswithin the time period is included. Specimen Narrative Performed At EXAMINATION:XR CHEST 1 VW PORTABLE [facility] CLINICAL HISTORY:Dyspnea COMPARISON:Most recent [facility] prior. IMPRESSION: There is cardiomegaly and pulmonary vascular congestion. [facility]-[id number] Procedure Note Hm Interface, Radiology Results Incoming - 10/26/2018 2:06 PM CDT EXAMINATION: XR CHEST 1 VW PORTABLE CLINICAL HISTORY: Dyspnea COMPARISON: Most recent [facility] prior. IMPRESSION: There is cardiomegaly and pulmonary vascular congestion. [facility]-[id number] Performing Organization Address City/[facility] Phone Number [facility] [address] [place] [address] Estimated GFR (10/26/2018 10:06 AM CDT)Only the most recent of7 resultswithin the time period is included. Pathologist [facility] Estimated GFR 36 (A) mL/min/1.73 [facility] Comment: HOSPITAL CatergoryUnitsInterpretation G1 >=90 Normal or high G2 60-89Mildly decreased [id number] to moderately decreased [id number] to severely decreased G4 15-29Severely decreased G5 <15Kidney failure The eGFR was calculated using the Chronic Kidney Disease Epidemiology Collaboration (CKD-EPI) equation. Interpretation is based on recommendations of the National Kidney Foundation-Kidney Disease Outcomes Quality Initiative (NKF-KDOQI) published in 2014. Specimen Plasma specimen Performing Organization Address City/[facility] Phone Number [facility] DEPARTMENT OF PATHOLOGY AND [address] [place] [address] GENOMIC MEDICINE [facility] [address] [place] [address] Basic metabolic panel (10/26/2018 10:06 AM CDT)Only the most recent of2 resultswithin the time period is included. Sodium 134 (L) 135 - 148 mEq/L [facility] Potassium 4.6 3.5 - 5.0 mEq/L [facility] Chloride 96 (L) 98 - 112 mEq/L [facility] CO2 23 (L) 24 - 31 mEq/L [facility] Anion gap 15@ANIO 7 - 15 mEq/L [facility] BUN 29 (H) 8 - 23 mg/dL [facility] Creatinine 1.81 (H) 0.70 - 1.20 mg/dL [facility] Glucose 200 (H) 65 - 99 mg/dL [facility] Calcium 7.7 (L) 8.8 - 10.2 mg/dL [facility] Specimen Plasma specimen Performing Organization Address City/[facility] Phone Number [facility] DEPARTMENT OF PATHOLOGY AND [address] [place] [id number] [address] CBC with platelet and differential (10/25/2018 4:00 AM CDT)Only the most recent of6 resultswithin the time period is included. WBC 4.73 4.50 - 11.00 [facility]/uL HOSPITAL RBC 4.33 (L) 4.40 - 6.00 [facility] HGB 14.1 14.0 - 18.0 [facility] HCT 43.4 41.0 - 51.0 % [facility] MCV 100.2 (H) 82.0 - 100.0 [facility] MCH 32.6 27.0 - 34.0 pg [facility] MCHC 32.5 31.0 - 37.0 [facility] RDW - SD 54.4 37.0 - 55.0 fL [facility] MPV 10.6 8.8 - 13.2 fL [facility] Platelet count 128 (L) 150 - 400 k/uL [facility] Nucleated RBC 0.00 /100 WBC [facility] Neutrophils 56.7 39.0 - 69.0 % [facility] Lymphocytes 26.6 25.0 - 45.0 % [facility] Monocytes 10.1 (H) 0.0 - 10.0 % [facility] Eosinophils 4.9 0.0 - 5.0 % [facility] Basophils 1.3 (H) 0.0 - 1.0 % [facility] Immature granulocytes 0.4Comment: 0.0 - 1.0 % [facility] "Immature HOSPITAL granulocytes" (promyelocytes , myelocytes, metamyelocytes ) Specimen Blood Performing Organization Address City/[facility] Phone Number [facility] DEPARTMENT OF PATHOLOGY AND [address] [place] [phone] [facility] [address] [place] [address] US Abdominal with Liver Elastograpy (10/24/2018 9:17 AM CDT) Specimen Narrative Performed At EXAM: US ABDOMINAL WITH LIVER ELASTOGRAPHY [facility] CLINICAL DATA:Eval echotexture look for cirrhosis COMPARISON: NONE. TECHNIQUE: Sonographic evaluation of the abdomen, including grayscale/B mode, color and spectral Doppler as well as 2-D Shear wave elastography. FINDINGS: LIVER:The liver has a small right hepatic lobe with coarsened echogenicity and a nodular contour. 2D-Shear wave elastography was performed; 10 measurements were obtained from the right hepatic lobe per protocol. The median stiffness was 4.79 kPa, within normal limits (see reference ranges for [employer] E9 with C1-6 Mhz probe below). Please note that velocities/stiffness may ALSO be elevated due to passive hepatic congestion, biliary obstruction/cholestasis, and inflammation (such as acute viral hepatitis flare).Results should be interpreted with caution in these settings. [employer] Logiq E9 reference ranges: METAVIRSW velocity Stiffness Normal F>0<1.35 m/s 1.35 m/s<5.48 kPa 5.48 kPa F>11.66 m/s8.29 kPa F>21.77 m/s9.40 kPa F>31.99 m/s11.9 kPa Reliability: The IQR was 2.00 kPa, resulting in an IQR/median ratio of 0.418. (A value of < 0.3 indicates a reliable dataset). MPV:Doppler evaluation of the portal vein demonstrates a grossly patent vessel with hepatopedal flow. GALLBLADDER:The gallbladder is without evidence of calculi. The gallbladder wall is not thickened and there is no pericholecystic fluid. PANCREAS: Visualized portions of the pancreatic body are unremarkable. CBD: The common bile duct measures 3 mm , within normal limits. ASCITES: No abnormal abdominal fluid collections are visualized. There is no evidence of ascites. KIDNEYS: The right kidney measures 10.2 cm in long axis diameter. There is a 1.3 cm long axis hyperechoic exophytic focus extending from the interpolar region, possibly a small angiomyolipoma and possibly representing normal adjacent perirenal fat. There is also a 1.6 cm right interpolar cyst. The left kidney measures 10.1 cm. SPLEEN:The spleen is homogeneous and not enlarged measuring 11.9 cm. AORTA: The abdominal aorta was not visualized. IVC: Visualized portions of the IVC are patent. IMPRESSION: Hepatic elastography suggests no significant fibrosis; however, the IQR/median ratio was elevated, suggesting an unreliable data set. Macroscopically, the liver is heterogenous with a small right hepatic lobe and a nodular contour, compatible with cirrhosis. 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 Recommend comparison with any prior available cross-sectional imaging and consider renal protocol CT if further characterization is desired. [facility]-[id number] Procedure Note [facility], Radiology Results Incoming - 10/24/2018 11:08 AM CDT EXAM: US ABDOMINAL WITH LIVER ELASTOGRAPHY CLINICAL DATA: Eval echotexture look for cirrhosis COMPARISON: NONE. TECHNIQUE: Sonographic evaluation of the abdomen, including grayscale/B mode, color and spectral Doppler as well as 2-D Shear wave elastography. FINDINGS: LIVER: The liver has a small right hepatic lobe with coarsened echogenicity and a nodular contour. 2D-Shear wave elastography was performed; 10 measurements were obtained from the right hepatic lobe per protocol. The median stiffness was 4.79 kPa, within normal limits (see reference ranges for [employer]iq E9 with C1-6 Mhz probe below). Please note that velocities/stiffness may ALSO be elevated due to passive hepatic congestion, biliary obstruction/cholestasis, and inflammation (such as acute viral hepatitis flare). Results should be interpreted with caution in these settings. GE Logiq E9 reference ranges: METAVIR SW velocity Stiffness Normal F>0 <1.35 m/s 1.35 m/s <5.48 kPa 5.48 kPa F>1 1.66 m/s 8.29 kPa F>2 1.77 m/s 9.40 kPa F>3 1.99 m/s 11.9 kPa Reliability: The IQR was 2.00 kPa, resulting in an IQR/median ratio of 0.418. (A value of < 0.3 indicates a reliable dataset). MPV: Doppler evaluation of the portal vein demonstrates a grossly patent vessel with hepatopedal flow. GALLBLADDER: The gallbladder is without evidence of calculi. The gallbladder wall is not thickened and there is no pericholecystic fluid. PANCREAS: Visualized portions of the pancreatic body are unremarkable. CBD: The common bile duct measures 3 mm , within normal limits. ASCITES: No abnormal abdominal fluid collections are visualized. There is no evidence of ascites. KIDNEYS: The right kidney measures 10.2 cm in long axis diameter. There is a 1.3 cm long axis hyperechoic exophytic focus extending from the interpolar region, possibly a small angiomyolipoma and possibly representing normal adjacent perirenal fat. There is also a 1.6 cm right interpolar cyst. The left kidney measures 10.1 cm. SPLEEN: The spleen is homogeneous and not enlarged measuring 11.9 cm. AORTA: The abdominal aorta was not visualized. IVC: Visualized portions of the IVC are patent. IMPRESSION: Hepatic elastography suggests no significant fibrosis; however, the IQR/median ratio was elevated, suggesting an unreliable data set. Macroscopically, the liver is heterogenous with a small right hepatic lobe and a nodular contour, compatible with cirrhosis. 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 Recommend comparison with any prior available cross-sectional imaging and consider renal protocol CT if further characterization is desired. [facility]-[id number] Performing Organization Address City/[facility]/Zipcode Phone Number [address] [address] Sedimentation rate (10/24/2018 4:23 AM CDT) Sedimentation rate 7 0 - 10 mm/hr [facility] Specimen Blood Performing Organization Address City/[facility] Phone Number [facility] DEPARTMENT OF PATHOLOGY AND [address] [place] [phone] Phosphorus level (10/24/2018 4:00 AM CDT)Only the most recent of4 resultswithin the time period is included. Phosphorus 3.7 2.4 - 4.5 mg/dL [facility] Specimen Plasma specimen Performing Organization Address [facility]/Zipcode Phone Number [facility] DEPARTMENT OF PATHOLOGY AND [address] [place] [phone] Magnesium level (10/24/2018 4:00 AM CDT)Only the most recent of4 resultswithin the time period is included. Magnesium 2.1 1.6 - 2.4 mg/dL [facility] Specimen Plasma specimen Performing Organization Address City/State/Zipcode Phone Number [facility] DEPARTMENT OF PATHOLOGY AND [address] [place] [phone] [facility] [address] [place] [address] Ionized calcium (10/24/2018 4:00 AM CDT)Only the most recent of3 resultswithin the time period is included. pH 7.68 [facility] Ionized calcium 0.83 (L) 1.11 - 1.32 [facility] mmol/L [facility] Specimen Plasma specimen Performing Organization Address City/State/Zipcode Phone Number [facility] DEPARTMENT OF PATHOLOGY AND [address] [place] [address] [address] Comprehensive metabolic panel (10/24/2018 4:00 AM CDT)Only the most recent of5 resultswithin the time period is included. Sodium 135 135 - 148 [facility] mEq/L [facility] Potassium 4.6 3.5 - 5.0 [facility] mEq/L [facility] Chloride 94 (L) 98 - 112 mEq/L [facility] CO2 24 24 - 31 mEq/L [facility] Anion gap 17@ANIO (H) 7 - 15 mEq/L [facility] BUN 31 (H) 8 - 23 mg/dL [facility] Creatinine 1.94 (H) 0.70 - 1.20 [facility] mg/dL [facility] Glucose 126 (H) 65 - 99 mg/dL [facility] Calcium 8.4 (L) 8.8 - 10.2 [facility] mg/dL [facility] Protein 7.5 6.3 - 8.3 g/dL [facility] Comment: HOSPITAL [place] 4.6-7.0 g/dL 1 week 4.4-7.6 g/dL 7 months-1year5.1-7.3 g/dL 1-2 years5.6-7.5 g/dL >3 years6.0-8.0 g/dL 18-150 6.3-8.3 g/dL Albumin 3.6 3.5 - 5.0 g/dL [facility] A/G ratio 0.9 0.7 - 3.8 [facility] Alkaline phosphatase 76 40 - 129 U/L [facility] AST 31 10 - 50 U/L [facility] ALT 18 5 - 50 U/L [facility] Total bilirubin 1.0 0.0 - 1.2 [facility] mg/dL HOSPITAL Specimen Plasma specimen Performing Organization Address City/State/Zipcode Phone Number [facility] DEPARTMENT OF PATHOLOGY AND [address] [place] [phone] GENOMIC MEDICINE [facility] [address] [place] [address] Us vein mapping lower extremity (10/23/2018 10:10 PM CDT) Specimen Narrative Performed At [facility] Lower Extremity Vein Mapping Report [id number] [place] [address] Pat.Name:MUNIRA MILLS Pat.ID:[id number] .Date: 10/23/2018Refer.MD:NEERAJ HAMEED MD Exam Time: 9:18:00 PMStudy Type:LE Vein Mapping Height:75inDOBAge: 1940,77Y Sex: MALESonogrphr: Hemant Styles, FELIPA, ARGELIA Pat. Stat.:Inpatient Room:[address] TapeVol: AMARILIS, CPT - 4: 54591 Echo Event ID:[id number] Order ID:[id number] Reason for Study:LE venous mapping for CABG. History ofB/L PAD s/p bypasses, DM , HTN, CAD s/p multiple stents Procedures:Colorflow, Grayscale/2D, Pulsed wave Doppler Race:C SUMMARY: DUPLEX SCAN OBSERVATIONS Deep VeinsSuperficial Veins RightLeft RightLeft GSV (prox) NormalNormal CFV Normal Normal (above knee) Femoral Normal Normal GSV (dist) Normal Normal Profunda Normal Normal (below knee) Popliteal Normal Normal PT (prox) Not Visualized NormalSSV Normal Normal PT (dist) Normal Normal Peroneal Normal Normal gastroc Not visualized Normal RIGHT:There is normal compressibility with no evidence of echogenic material noted within the lumen of the visualized veins. Color flow and Doppler signals are normal. LEFT: There is normal compressibility with no evidence of echogenic material noted within the lumen of the visualized veins. Color flow and Doppler signals are normal. PRELIMINARY FINDINGS 1. No evidence of venous thrombosis of the visualized veins, bilaterally. 2. There is a patent bypass graftin the thigh originating from common femoral artery, bilaterally. 3. Vein measurements are provided in the diagram. PHYSICIAN INTERPRETATION Venous examination of the both lower extremities demonstrated no evidence of venous thrombosis in the visualized veins.Normal compressibility and augmentation of all veins visualized. Signed 10/24/2018 07:56 AM Gurmeet Oswald MD, RPVI Procedure Note Interface, Radiology Results In - 10/24/2018 7:57 AM CDT [facility] Lower Extremity Vein Mapping Report [id number] [place] [address] Pat.Name: MUNIRA MILLS Pat.ID: [id number] .Date: 10/23/2018 Refer.MD: NEERJA HAMEED MD Exam Time: 9:18:00 PM Study Type:LE Vein Mapping Height: 75in Age: 6 1940,77Y Sex: MALE Sonogrphr: FELIPA Grant RCS Pat. Stat.:Inpatient Room: [address] Tape Vol: JM, CPT - 4: 97484 Echo Event ID:[id number] Order ID: [id number] Reason for Study:LE venous mapping for CABG. History ofB/L PAD s/p bypasses, DM , HTN, CAD s/p multiple stents Procedures:Colorflow, Grayscale/2D, Pulsed wave Doppler Race: C SUMMARY: DUPLEX SCAN OBSERVATIONS Deep Veins Superficial Veins Right Left Right Left GSV (prox) Normal Normal CFV Normal Normal (above knee) Femoral Normal Normal GSV (dist) Normal Normal Profunda Normal Normal (below knee) Popliteal Normal Normal PT (prox) Not Visualized Normal SSV Normal Normal PT (dist) Normal Normal Peroneal Normal Normal gastroc Not visualized Normal RIGHT: There is normal compressibility with no evidence of echogenic material noted within the lumen of the visualized veins. Color flow and Doppler signals are normal. LEFT: There is normal compressibility with no evidence of echogenic material noted within the lumen of the visualized veins. Color flow and Doppler signals are normal. PRELIMINARY FINDINGS 1. No evidence of venous thrombosis of the visualized veins, bilaterally. 2. There is a patent bypass graft in the thigh originating from common femoral artery, bilaterally. 3. Vein measurements are provided in the diagram. PHYSICIAN INTERPRETATION Venous examination of the both lower extremities demonstrated no evidence of venous thrombosis in the visualized veins. Normal compressibility and augmentation of all veins visualized. Signed 10/24/2018 07:56 AM Gurmeet Oswald MD, RPVI Performing Organization Address City/State/Zipcode Phone Number [facility] [address] [place] [address] [place] Lung Ventilation Perfusion (10/23/2018 6:48 PM CDT) Specimen Narrative Performed At CLINICAL HISTORY: PE suspectedhigh pretest prob RADIANT TECHNIQUE: The patient breathed 15-20 mCi of xenon-133 gas through a closed ventilation system while dynamic imaging of the lungs was performed in the posterior and anterior projections. The patient was then injected with 5 mCi of nioxkknwew-[id number] intravenously, followed by imaging of the lungs in anterior, posterior, and oblique projections. FINDINGS: Large areas of mildly reduced perfusion in the upper lobes on the oblique views, partly related to a prominent left hilum and partly to attenuation artifacts. No well-defined perfusion defects. Ventilation images are unremarkable. IMPRESSION: Low Probability for pulmonary embolism. [facility]-[id number] Procedure Note Interface, Radiology Results Incoming - 10/23/2018 6:53 PM CDT CLINICAL HISTORY: PE suspected high pretest prob TECHNIQUE: The patient breathed 15-20 mCi of xenon-133 gas through a closed ventilation system while dynamic imaging of the lungs was performed in the posterior and anterior projections. The patient was then injected with 5 mCi of iwntyhtuup-60i-JMG intravenously, followed by imaging of the lungs in anterior, posterior, and oblique projections. FINDINGS: Large areas of mildly reduced perfusion in the upper lobes on the oblique views , partly related to a prominent left hilum and partly to attenuation artifacts. No well-defined perfusion defects. Ventilation images are unremarkable. IMPRESSION: Low Probability for pulmonary embolism. [facility]-[id number] Performing Organization Address City/State/Zipcode Phone Number [facility] [address] [place] [phone] SS-B antibody (10/23/2018 6:32 PM CDT) Sjogren's SS-B <0.2 0.0 - 0.9 [facility] antibody [facility] SS-B antibody Negative [facility] interp Comment: TENRIISM SS-B/La antibody is seen in patients with Sjogren syndrome, but may also be HOSPITAL positive with systemic lupus erythematosus (SLE), and systemic sclerosis. Specimen Serum Performing Organization Address City/State/Zipcode Phone Number [facility] DEPARTMENT OF PATHOLOGY AND [address] [place] [phone] [address] SS-A antibody (10/23/2018 6:32 PM CDT) Sjogren's SS-A <0.2 0.0 - 0.9 [facility] antibody [facility] SS-A antibody Negative [facility] interp Comment: TENRIISM SS-A antibody is sensitive for Sjogren's syndrome, but may also be positive HOSPITAL with systemic lupus erythematosus (SLE), and systemic sclerosis. Specimen Serum Performing Organization Address City/[facility]/Zipcode Phone Number [facility] DEPARTMENT OF PATHOLOGY AND [address] [place] [phone] [address] Scl-70 antibody (10/23/2018 6:32 PM CDT) Scleroderma SCL-70 <0.2 0.0 - 0.9 [facility] Ab [facility] Scl-70 antibody Negative [facility] interp Comment: TENRIISM Anti-Scl-70 (topoisomerase I) antibodies are found in patients with HOSPITAL systemic sclerosis (SSc or scleroderma), and have been reported to be predictive of diffuse cutaneous involvement. Anti-Scl-70 antibodies may also be present in patients with systemic lupus erythematosus (SLE). Specimen Serum Performing Organization Address City/State/Zipcode Phone Number [facility] DEPARTMENT OF PATHOLOGY AND [address] [place] [address] HIV Ag/Ab combination (10/23/2018 6:31 PM CDT) [facility] HIV Ag/Ab combination Non-reactive Non-reactive [facility] Specimen Blood Performing Organization Address City/[facility]/Zipcode Phone Number [facility] DEPARTMENT OF PATHOLOGY AND [address] [place] [address] CRP high sensitivity (10/23/2018 6:31 PM CDT) [facility] CRP, high 17.41 mg/L [place] sensitivity Comment: TENRIISM Please note this test is different from the C-Reactive Protein HOSPITAL (CRP) assay. CRP is a nonspecific marker of inflammation and its levels rise in the presence of conditions such as infection and inflammatory disorders. Persistent low levels of CRP can be measured with a high-sensitivity assay (hsCRP) andare associated with increased risks for atherosclerotic diseases. High-Sensitivity CRP (hsCRP) results are used to assign risk for stroke, acute myocardial infarction and peripheral vascular disease as follows: Low risk: < 1.00 mg/L Average risk: 1.00 - 3.00 mg/L High risk: > 3.00 - 10.00 mg/L Indeterminate: > 10.00 mg/L * *May be indicative of another source of inflammation or infection Specimen Plasma specimen Performing Organization Address City/[facility]/Zipcode Phone Number [facility] DEPARTMENT OF PATHOLOGY AND [address] [place] [address] LUIS CARLOS (10/23/2018 6:31 PM CDT) [facility] LUIS CARLOS screen Negative Negative [facility] Specimen Blood Performing Organization Address City/State/Zipcode Phone Number [facility] DEPARTMENT OF PATHOLOGY AND [address] [place] [address] Us carotid duplex (10/23/2018 11:00 AM CDT) Specimen Narrative [facility]formed At [facility] Carotid Artery Duplex Report [id number] [facility] [address], [place] [address] For quality reviewer purposes, the categorization of the degree of the stenosis of this exam is based on criteria described in the IAC carotid stenosis grading white paper( www.intersocietal.org/Vascular) and Vera Cardenas., Seamus Eng., et al. Carotid artery stenosis: alvarenga-scale and Doppler US diagnosis--Society of Radiologists in Ultrasound Consensus Conference. Radiology. 2003 Nov; 229(2):340-6. Pat.Name:MUNIRA MILLS Pat.ID:[id number] .Date: 10/23/2018Refer.MD:NEERAJ HAMEED MD Exam Time: 10:28:00 AM Study Type:Carotid Height:75inDOBAge: 1940,77Y Sex: MALESonogrphr: FELIPA Blanc Pat. Stat.:Inpatient Room: TapeVol: , CPT - 4: 98856 Echo Event ID:[id number] Order ID:[id number] Reason for Study:Pre-op CV exam CABG evaluation; CAD and Diabetic. Procedures:Colorflow, Grayscale/2D, Pulsed wave Doppler Race:C SUMMARY: PHYSICAL ASSESSMENT BloodPulsesCarotid Pressure Carotid TemporalBruit Right 118/73 ++0 Left IV ++0 CAROTID ARTERY SCAN RIGHT:There is scattered hard plaquein the common carotid artery. There is hard and calcified plaque noted in the bulb extending into the proximal internal and external carotid artery.Colorflow is normal. LEFT:There is scattered hard plaquein the common carotid artery. There is hard and calcified plaque noted in the bulb extending into the proximal internal and external carotid artery.Colorflow is normal. PRELIMINARY FINDINGS 1.<50%stenosis in the bulb and internal carotid artery, bilaterally. 2.<50% stenosis in the external carotid artery, bilaterally. 3. Non-stenotic plaque in the common carotid artery,bilaterally. PHYSICIAN INTERPRETATION Bilateral carotid duplex examination demonstrated atherosclerotic plaques in the bulbs/ CCAs. Less than 50% stenosis in the bulb and internal carotid artery, bilaterally. Both vertebral arteries are antegrade. Carotid Findings:RightLeft Verteb.Flw AntegradeAntegrade Subclavian TriphasicTriphasic MEASUREMENTS: DOPPLER Right CCA Dist CCA Dist PSV69 cm/sCCA Dist EDV 9 cm/s Right CCA Mid CCA Mid PSV 74.2 cm/sCCA Mid EDV7.7 cm/s Right CCA Prox CCA Prox PSV67.7 cm/sCCA Prox EDV 9 cm/s Right ECA Prox ECA Prox PSV93.8 cm/sECA Prox EDV18.9 cm/s Right ICA Dist ICA Dist PSV45.3 cm/Artie Dist EDV10.1 cm/s Right ICA Mid ICA Mid PSV 86.2 cm/Artie Mid EDV 18.9 cm/s Right ICA Prox ICA Prox PSV59 cm/Artie Prox EDV16.3 cm/s Right Vertebral Vertebral PSV 32.1 cm/sVertebral EDV 6.81 cm/s Right Subclavian Subclavian PSV 129 cm/sSubclavian EDV 0 cm/s Left CCA Dist CCA Dist PSV79 cm/sCCA Dist EDV10.9 cm/s Left CCA Mid CCA Mid PSV 74.6 cm/sCCA Mid EDV 14.2 cm/s Left CCA Prox CCA Prox PSV 107 cm/sCCA Prox EDV10.2 cm/s Left ECA Prox ECA Prox PSV 135 cm/sECA Prox EDV5.11 cm/s Left ICA Dist ICA Dist PSV59.3 cm/Artie Dist EDV12.3 cm/s Left ICA Mid ICA Mid PSV 61 cm/Artie Mid EDV 16.9 cm/s Left ICA Prox ICA Prox PSV86.4 cm/Artie Prox EDV7.43 cm/s Left Vertebral Vertebral PSV 45.1 cm/sVertebral EDV 11.6 cm/s Left Subclavian Subclavian PSV 101 cm/sSubclavian EDV 0 cm/s Right ICA/CCA Ratio ICA/CCA PSV0.795 Left ICA/CCA Ratio ICA/CCA PSV 1.16 Signed 10/24/2018 09:44 AM Gurmeet Oswald MD, RPVI Procedure Note Interface, Radiology Results In - 10/24/2018 9:45 AM CDT [facility] Ultrasound Laboratory Carotid Artery Duplex Report [id number] [address] For quality reviewer purposes, the categorization of the degree of the stenosis of this exam is based on criteria described in the IAC carotid stenosis grading white paper( www.intersocietal.org/Vascular) and Michelle Cardenas, Brii Eng, et al. Carotid artery stenosis: alvarenga-scale and Doppler US diagnosis--Society of Radiologists in Ultrasound Consensus Conference. Radiology. 2003 Nov; 229(2):340-6. Pat.Name: MUNIRA MILLS Pat.ID: [id number] St.Date: 10/23/2018 Refer.MD: NEERAJ HAMEED MD Exam Time: 10:28:00 AM Study Type:Carotid Height: 75in Age: 6 1940,77Y Sex: MALE Sonogrphr: FELIPA Blanc Pat. Stat.:Inpatient Room: [address] Vol: , CPT - 4: [address] Echo Event ID:[id number] Order ID: [id number] Reason for Study:Pre-op CV exam CABG evaluation; CAD and Diabetic. Procedures:Colorflow, Grayscale/2D, Pulsed wave Doppler Race: C SUMMARY: PHYSICAL ASSESSMENT Blood Pulses Carotid Pressure Carotid Temporal Bruit Right 118/73 + + 0 Left IV + + 0 CAROTID ARTERY SCAN RIGHT: There is scattered hard plaque in the common carotid artery. There is hard and calcified plaque noted in the bulb extending into the proximal internal and external carotid artery. Colorflow is normal. LEFT: There is scattered hard plaque in the common carotid artery. There is hard and calcified plaque noted in the bulb extending into the proximal internal and external carotid artery. Colorflow is normal. PRELIMINARY FINDINGS 1. <50% stenosis in the bulb and internal carotid artery, bilaterally. 2. <50% stenosis in the external carotid artery, bilaterally. 3. Non-stenotic plaque in the common carotid artery, bilaterally. PHYSICIAN INTERPRETATION Bilateral carotid duplex examination demonstrated atherosclerotic plaques in the bulbs/ CCAs. Less than 50% stenosis in the bulb and internal carotid artery, bilaterally. Both vertebral arteries are antegrade. Carotid Findings: Right Left Verteb.Flw Antegrade Antegrade Subclavian Triphasic Triphasic MEASUREMENTS: DOPPLER Right CCA Dist CCA Dist PSV 69 cm/s CCA Dist EDV 9 cm/s Right CCA Mid CCA Mid PSV 74.2 cm/s CCA Mid EDV 7.7 cm/s Right CCA Prox CCA Prox PSV 67.7 cm/s CCA Prox EDV 9 cm/s Right ECA Prox ECA Prox PSV 93.8 cm/s ECA Prox EDV 18.9 cm/s Right ICA Dist ICA Dist PSV 45.3 cm/s ICA Dist EDV 10.1 cm/s Right ICA Mid ICA Mid PSV 86.2 cm/s ICA Mid EDV 18.9 cm/s Right ICA Prox ICA Prox PSV 59 cm/s ICA Prox EDV 16.3 cm/s Right Vertebral Vertebral PSV 32.1 cm/s Vertebral EDV 6.81 cm/s Right Subclavian Subclavian PSV 129 cm/s Subclavian EDV 0 cm/s Left CCA Dist CCA Dist PSV 79 cm/s CCA Dist EDV 10.9 cm/s Left CCA Mid CCA Mid PSV 74.6 cm/s CCA Mid EDV 14.2 cm/s Left CCA Prox CCA Prox PSV 107 cm/s CCA Prox EDV 10.2 cm/s Left ECA Prox ECA Prox PSV 135 cm/s ECA Prox EDV 5.11 cm/s Left ICA Dist ICA Dist PSV 59.3 cm/s ICA Dist EDV 12.3 cm/s Left ICA Mid ICA Mid PSV 61 cm/s ICA Mid EDV 16.9 cm/s Left ICA Prox ICA Prox PSV 86.4 cm/s ICA Prox EDV 7.43 cm/s Left Vertebral Vertebral PSV 45.1 cm/s Vertebral EDV 11.6 cm/s Left Subclavian Subclavian PSV 101 cm/s Subclavian EDV 0 cm/s Right ICA/CCA Ratio ICA/CCA PSV 0.795 Left ICA/CCA Ratio ICA/CCA PSV 1.16 Signed 10/24/2018 09:44 AM Gurmeet Oswald MD, RPVI Performing Organization Address City/[facility]ode Phone Number [facility] [address] [place] [address] Thyroid stimulating hormone (10/23/2018 4:00 AM CDT) TSH 6.50 (H) 0.27 - 4.20 uIU/mL [facility] Specimen Plasma specimen Performing Organization Address [facility] Phone Number [facility] DEPARTMENT OF PATHOLOGY AND [address] [place] [phone] T4, free (10/23/2018 4:00 AM CDT) T4, free 1.0 0.9 - 1.7 ng/dL [facility] Specimen Plasma specimen Performing Organization Address [facility] Phone Number [facility] DEPARTMENT OF PATHOLOGY AND [address] [place] [phone] Vitamin D 25 hydroxy level (10/23/2018 12:00 AM CDT) Vitamin D, 4.0 (L) 30.0 - 150.0 [facility] 25-hydroxy Comment: ng/mL HOSPITAL This assay reports the sum of 25-hydroxy vitamin D3 and 25-hydroxy vitamin D2. Reference range: 0-17 years: Deficiency: less than 20ng/mL Optimum level: greater than or equal to 20 ng/mL. 18 years and older: Deficiency: less than 20ng/mL Insufficiency: 20-29 ng/mL Optimum Level: 30-80 ng/mL The assay reportable range is 3.4155.9 ng/mL. Levels higher than 150 ng/mL may be associated with toxicity. If toxicity is clinically suspected and the reported result is >155.9 ng/mL,contact lab for alternative methods to obtain a definitivelevel. If separate quantitation of 25-hydroxy vitamin D3 and 25-hydroxy vitamin D2 is needed, please contact lab for alternative methods. Specimen Blood Performing Organization Address City/State/Zipcode Phone Number [facility] DEPARTMENT OF PATHOLOGY AND [address] [place] [address] [facility] MEDICINE [facility] [address] [place] [address] XR Knee 1 Or 2 Vw Right (10/22/2018 8:42 PM CDT) Specimen Narrative Performed At EXAMINATION:XR KNEE 1 OR 2 VW RIGHT [facility]IANT CLINICAL HISTORY:fall incident COMPARISON:None. IMPRESSION: No evidence of acute right knee fracture, dislocation, or significant joint effusion. Bone mineralization is normal. Vascular calcifications. Nonspecific soft tissue edema. [facility]-[id number] Procedure Note Interface, Radiology Results Incoming - 10/22/2018 8:49 PM CDT EXAMINATION: XR KNEE 1 OR 2 VW RIGHT CLINICAL HISTORY: fall incident COMPARISON: None. IMPRESSION: No evidence of acute right knee fracture, dislocation, or significant joint effusion. Bone mineralization is normal. Vascular calcifications. Nonspecific soft tissue edema. [facility]-[id number] Performing Organization Address City/[facility]/Zipcode Phone Number [facility] [address] [place] [address] XR Hip 2-3 View Right (10/22/2018 8:41 PM CDT) Specimen Narrative Performed At EXAMINATION:XR HIP 2-3 VIEWS RIGHT [facility] CLINICAL HISTORY:fall incident COMPARISON:None. IMPRESSION: There is mild osteopenia. There is no acute displaced fracture or dislocation. There are mild degenerative changes of the visualized skeleton. There is no focal cortical erosion or periosteal reaction to suggest infectious/inflammatory osteoarthropathy. There is atherosclerotic calcification of the vasculature. Multiple surgical clips are seen in the right groin. [facility]-[id number] Procedure Note Interface, Radiology Results Incoming - 10/22/2018 10:01 PM CDT EXAMINATION: XR HIP 2-3 VIEWS RIGHT CLINICAL HISTORY: fall incident COMPARISON: None. IMPRESSION: There is mild osteopenia. There is no acute displaced fracture or dislocation. There are mild degenerative changes of the visualized skeleton. There is no focal cortical erosion or periosteal reaction to suggest infectious/ inflammatory osteoarthropathy. There is atherosclerotic calcification of the vasculature. Multiple surgical clips are seen in the right groin. [facility]-[id number] Performing Organization Address [facility] Phone Number [facility] [address] [place] [address] XR Elbow 2 Vw Right (10/22/2018 8:41 PM CDT) Specimen Narrative Performed At EXAMINATION:XR ELBOW 2 VW RIGHT [facility] CLINICAL HISTORY:FALL INCIDENT COMPARISON:None. IMPRESSION: No evidence of acute right elbow fracture, dislocation, or joint effusion. Olecranon enthesophyte. No acute soft tissue abnormality. [facility]-[id number] Procedure Note Interface, Radiology Results Incoming - 10/22/2018 8:50 PM CDT EXAMINATION: XR ELBOW 2 VW RIGHT CLINICAL HISTORY: FALL INCIDENT COMPARISON: None. IMPRESSION: No evidence of acute right elbow fracture, dislocation, or joint effusion. Olecranon enthesophyte. No acute soft tissue abnormality. [facility]-[id number] Performing Organization Address [facility] Phone Number [facility] [address] [place] [address] XR Ankle 2 Vw Right (10/22/2018 8:41 PM CDT) Specimen Narrative Performed At Examination:XR ANKLE 2 VW RIGHT [facility] Clinical History: FALL INCIDENT Comparison: None. Findings: 2 views of the right ankle are obtained. No acute fracture or dislocation is seen. The joint spaces are within normal limits. Mild lateral soft tissue swelling is noted. Spurring is seen at the medial malleolus of the distal tibia. IMPRESSION: 1. Mild lateral soft tissue swelling without evidence of bony fracture. [facility]-[id number] Procedure Note Interface, Radiology Results Incoming - 10/22/2018 8:51 PM CDT Examination: XR ANKLE 2 VW RIGHT Clinical History: FALL INCIDENT Comparison: None. Findings: 2 views of the right ankle are obtained. No acute fracture or dislocation is seen. The joint spaces are within normal limits. Mild lateral soft tissue swelling is noted. Spurring is seen at the medial malleolus of the distal tibia. IMPRESSION: 1. Mild lateral soft tissue swelling without evidence of bony fracture. [facility]-[id number] Performing Organization Address [facility] Phone Number [facility] [address] [place] [address] CT Head Wo Contrast (10/22/2018 7:43 PM CDT) Specimen Narrative Performed At EXAMINATION: CT HEAD WO CONTRAST [facility] CLINICAL HISTORY: Head traumaintracranial arterial injury suspected, fall incident COMPARISON:None. TECHNIQUE: Noncontrast enhanced images of the brain were obtained from the skull base to the vertex. Both soft tissue and bone reconstruction algorithms were performed. CT scans are performed using radiation dose reduction techniques (iterative reconstruction and/or automated exposure control). Technical factors are evaluated and adjusted to ensure appropriate moderation of exposure. Automated dose management technology is applied to adjust radiation exposure while achieving a diagnostic quality image. FINDINGS: Generalized age-related brain parenchymal volume loss. Moderate patchy hypoattenuation of the supratentorial white matter, likely chronic microangiopathic changes. Mild cerebrovascular calcifications. The brain parenchyma is otherwise unremarkable. The alvarenga-white matter differentiation is preserved. No evidence of acute intra or extra-axial hemorrhage, mass, mass effect or acute territorial infarction. There is no acute hydrocephalus. Basal cisterns are patent. No acute soft tissue hematoma or laceration. No skull fractures or aggressive bony lesions. Paranasal sinuses and mastoid air cells are clear. Orbits are normal. IMPRESSION: No acute intracranial abnormality identified. [facility]-[id number] Procedure Note Interface, Radiology Results Incoming - 10/22/2018 7:51 PM CDT EXAMINATION: CT HEAD WO CONTRAST CLINICAL HISTORY: Head trauma intracranial arterial injury suspected, fall incident COMPARISON: None. TECHNIQUE: Noncontrast enhanced images of the brain were obtained from the skull base to the vertex. Both soft tissue and bone reconstruction algorithms were performed. CT scans are performed using radiation dose reduction techniques (iterative reconstruction and/or automated exposure control). Technical factors are evaluated and adjusted to ensure appropriate moderation of exposure. Automated dose management technology is applied to adjust radiation exposure while achieving a diagnostic quality image. FINDINGS: Generalized age-related brain parenchymal volume loss. Moderate patchy hypoattenuation of the supratentorial white matter, likely chronic microangiopathic changes. Mild cerebrovascular calcifications. The brain parenchyma is otherwise unremarkable. The alvarenga-white matter differentiation is preserved. No evidence of acute intra or extra-axial hemorrhage, mass, mass effect or acute territorial infarction. There is no acute hydrocephalus. Basal cisterns are patent. No acute soft tissue hematoma or laceration. No skull fractures or aggressive bony lesions. Paranasal sinuses and mastoid air cells are clear. Orbits are normal. IMPRESSION: No acute intracranial abnormality identified. [facility]-[id number] Performing Organization Address City/State/Zipcode Phone Number [facility] [address] [place] [address] Echocardiogram complete w contrast and 3D if needed (10/22/2018 1:58 PM CDT) Specimen Narrative Performed At [facility] Echocardiography Report [address] [facility], [address], [place] [address] Pat.Name:MUNIRA MILLS Pat.ID:[id number] .Date: 10/22/2018Refer.MD:NEERAJ HAMEED MD Exam Time: 12:15:00 PM Study Type:Routine Echo Height:75inWeight: 297lb BSA: 2.6 z4PIKLbu:1940,77Y Sex: MALEBP:106/67 HR:88 bpm Sonogrphr: ARGELIA Ahuja Pat. Stat.:Inpatient Room:[address] Study Status:Final Echo Event ID:[id number] Order ID:[id number] Reason for Study:HF- Re-eval of known HF (systolic or diastolic) to guide therapy History / Clinical:Diabetes Procedures:2D Echo, Colorflow Doppler, Intravenous Optison Contrast SUMMARY: RV size is moderately enlarged. RV systolic function is moderately to severely depressed. Estimated PA systolic pressure is 55 mmHg, assuming a mean RAP of 5 mmHg. FINDINGS: LV: LV size is normal. LV EF is normal. Overall wall motion is normal.Estimated EF is 55-59%. Septal motion is paradoxicalsecondary to RV systolic pressure overload. RV: RV size is moderately enlarged. RV systolic function is moderatelyto severely depressed. LA: LA size is normal. RA: RA volume is enlarged. AO: Aortic root diameter is normal. CHRIS: No pericardial effusion. AV: Mild thickening and calcification of AV leaflets. MV: No structural MV abnormalities noted. PV: No structural PV abnormalities noted. TV: No structural TV abnormalities noted. Mild tricuspid regurgitation Other:Estimated PA systolic pressure is 55 mmHg, assuming a mean RAPof 5 mmHg. MEASUREMENTS: 2D Parasternal [place] LVOT 2 cmLA Ds3.6 cm LVIDd4.9 cmIndex1.9 cm/m Ao An2.2 cm LVIDs3.4 cmAo Rtd 3.1 cm Index1.2 cm/m LV%fs 30.5 % LV Jziq007.8 g(122-174) IVSd 1.2 cmLVM Index 81.1 g/m2 LVPWd1.1 cmRWT0.4 Signed 10/22/2018 02:40 PM Ayush Montesinos MD Procedure Note Interface, Radiology Results In - 10/22/2018 2:41 PM CDT Echocardiography Report [address] [place] [address] Pat.Name: MUNIRA MILLS Pat.ID: [id number] .Date: 10/22/2018 Refer.MD: NEERAJ HAMEED MD Exam Time: 12:15:00 PM Study Type:Routine Echo Height: 75in Weight: 297lb BSA: 2.6 m2 Age: 8 1940,77Y Sex: MALE BP: 106/67 HR: 88 bpm Sonogrphr: ARGELIA Ahuja Pat. Stat.:Inpatient Room: [address] Study Status:Final Echo Event ID:[id number] Order ID: [id number] Reason for Study:HF- Re-eval of known HF (systolic or diastolic) to guide therapy History / Clinical:Diabetes Procedures:2D Echo, Colorflow Doppler, Intravenous Optison Contrast SUMMARY: RV size is moderately enlarged. RV systolic function is moderately to severely depressed. Estimated PA systolic pressure is 55 mmHg, assuming a mean RAP of 5 mmHg. FINDINGS: LV: LV size is normal. LV EF is normal. Overall wall motion is normal. Estimated EF is 55-59%. Septal motion is paradoxical secondary to RV systolic pressure overload. RV: RV size is moderately enlarged. RV systolic function is moderately to severely depressed. LA: LA size is normal. RA: RA volume is enlarged. AO: Aortic root diameter is normal. CHRIS: No pericardial effusion. AV: Mild thickening and calcification of AV leaflets. MV: No structural MV abnormalities noted. PV: No structural PV abnormalities noted. TV: No structural TV abnormalities noted. Mild tricuspid regurgitation Other: Estimated PA systolic pressure is 55 mmHg, assuming a mean RAP of 5 mmHg. MEASUREMENTS: 2D Parasternal [place] LVOT 2 cm LA Ds 3.6 cm LVIDd 4.9 cm Index 1.9 cm/m Ao An 2.2 cm LVIDs 3.4 cm Ao Rtd 3.1 cm Index 1.2 cm/m LV%fs 30.5 % LV Mass 210.8 g (122-174) IVSd 1.2 cm LVM Index 81.1 g/m2 LVPWd 1.1 cm RWT 0.4 Signed 10/22/2018 02:40 PM Ayush Montesinos MD Performing Organization Address [facility]/Zipcode Phone Number [facility] [address] [place] [address] B natriuretic peptide (10/22/2018 4:15 AM CDT)Only the most recent of2 resultswithin the time period is included. BNP 1,261 (H) 0 - 100 pg/mL [facility] Specimen Performing Organization Address [facility] Phone Number [facility] DEPARTMENT OF PATHOLOGY AND [address] [place] [address] [place] [address] Troponin (10/22/2018 4:10 AM CDT)Only the most recent of2 resultswithin the time period is included. Troponin 0.34 (H) 0.00 - 0.30 [facility] Comment: ng/mL HOSPITAL 0.30 - 1.49 ng/mlMay indicate increased risk of acute coronary syndrome. >=1.5 ng/mlConsistent with acute myocardial infarction. The diagnostic value of a single normal or non-diagnostic result is questionable.Serial samples at 2-6 hour intervals are required to rule out acute myocardial injury. Specimen Plasma specimen Performing Organization Address [facility] Phone Number [facility] DEPARTMENT OF PATHOLOGY AND [address] [place] [address] Protein, urine, random (10/21/2018 11:30 PM CDT) Protein, urine random 8 mg/dL [facility] Specimen Urine Performing Organization Address [facility] Phone Number [facility] DEPARTMENT OF PATHOLOGY AND [address] [place] [phone] [place] [address] Creatinine level, urine, random (10/21/2018 11:30 PM CDT) Creatinine, urine, 74 mg/dL [facility] Specimen Urine Performing Organization Address [facility] Phone Number [facility] DEPARTMENT OF PATHOLOGY AND [address] [place] [address] Urinalysis, automated with microscopy (10/21/2018 11:30 PM CDT) Color, UA Straw [facility] Appearance, UA Clear [facility] Specific gravity, UA 1.012 1.001 - 1.035 [facility] pH, UA 5.0 5.0 - 8.5 [facility] Protein, UA Negative Negative [facility] Glucose, UA Negative Negative [facility] Ketones, UA Negative Negative [facility] Bilirubin, UA Negative Negative [facility] Blood, UA Small (A) Negative [facility] Nitrite, UA Negative Negative [facility] Urobilinogen, UA <2.0 <2.0 [facility] Leukocyte esterase, Negative Negative [facility] WBC, UA 1 0 - 1 /HPF [facility] RBC, UA 3 0 - 5 /HPF [facility] Bacteria, UA None seen None seen [facility] Hyaline casts, UA 9 /LPF [facility] Yeast, UA None seen [facility] Yeast with None seen [facility] pseudohyphae, [facility] Specimen Urine Performing Organization Address City/State/Zipcode Phone Number [facility] DEPARTMENT OF PATHOLOGY AND [address] [place] [address] Hemoglobin A1c (10/21/2018 1:42 AM CDT)Only the most recent of2 resultswithin the time period is included. Hemoglobin A1C 10.7 (H) 4.0 - 5.6 % [facility] Comment: HOSPITAL HbA1c cutoffs for diagnosing diabetes: 4.0% - 5.6%=normal 5.7% - 6.4%=increased risk for diabetes (prediabetes) >=6.5%=diabetes Goals for glycemic control (ADA 2016) < 7.0%Target for non adults with diabetes. More or less stringent targets may be appropriate for individual patients. <7.5% Target for Children and adolescents with type 1 diabetes. Specimen Performing Organization Address City/State/Zipcode Phone Number [facility] DEPARTMENT OF PATHOLOGY AND [address] [place] [address] ECG 12 lead (10/21/2018 12:47 AM CDT) Ventricular rate 96 [facility] Atrial rate 96 [facility] ND interval 176 [facility] QRSD interval 102 [facility] QT interval 390 [facility] QTC interval 492 [facility] P axis 1 32 [facility] QRS axis 1 117 [facility] T wave axis 179 [facility] EKG impression Normal sinus [facility] MUSE rhythm-Left posterior fascicular block-Cannot rule out Inferior infarct , age undetermined-Abnormal ECG-No previous ECGs available-Electronicall y Signed By Marbin Nichols MD ([id number]) on 10/22/2018 10:53:27 AM Specimen Narrative Performed At Performing Organization Address City/[facility]/Zipcode Phone Number [address] [address] Partial thromboplastin time, activated (10/21/2018 12:40 AM CDT) Pathologist [facility] PTT 29.3 23.0 - 36.0 [facility] Comment: [facility] PTT therapeutic range for unfractionated heparin is 61.0-112.0 seconds which corresponds to Anti-Xa 0.3-0.7 U/ml. Specimen Blood Performing Organization Address City/[facility]/Zipcode Phone Number [facility] DEPARTMENT OF PATHOLOGY AND [address] [place] [phone] [address] Prothrombin time with INR (10/21/2018 12:40 AM CDT) Pathologist [facility] Prothrombin time 15.1 (H) 11.5 - 14.5 [facility] INR 1.2 [place] Comment: TENRIISM [facility] International Normalized Ratio (INR) is a therapeutic HOSPITAL monitoring tool for patients who are stable on oral anticoagulant therapy. An INR of 2.0-3.0 is suggested for deep vein thrombosis/pulmonary embolism. Specimen Blood Performing Organization Address City/[facility]/Zipcode Phone Number [facility] DEPARTMENT OF PATHOLOGY AND [address] [place] [phone] [address] Type and screen (10/21/2018 12:40 AM CDT) ABO grouping AB [facility] Rh type POS [facility] Antibody screen (gel) NEG [facility] Specimen Blood Performing Organization Address City/[facility]/Zipcode Phone Number [facility] DEPARTMENT OF PATHOLOGY AND [address] [place] [address] [address] Lactic acid level (10/21/2018 12:40 AM CDT) Lactic acid 1.9 0.5 - 2.2 mmol/L [facility] Specimen Plasma specimen Performing Organization Address City/[facility] Phone Number [facility] DEPARTMENT OF PATHOLOGY AND [address] [place] [phone] [address] Creatine kinase, total (CPK) (10/21/2018 12:40 AM CDT) Creatine kinase 226 39 - 308 U/L [facility] Specimen Plasma specimen Performing Organization Address City/[facility] Phone Number [facility] DEPARTMENT OF PATHOLOGY AND [address] [place] [phone] [address] Lipid panel (10/21/2018 12:40 AM CDT) Cholesterol 107 <200 mg/dL [facility] Triglycerides 86 <150 mg/dL [facility] HDL cholesterol 40 >40 mg/dL [facility] LDL cholesterol 56Comment: Result <100 mg/dL [place] obtained by direct TENRIISM LDL measurement [facility] Lipid panel [facility] interpretation Comment: TENRIISM Total Cholesterol (mg/dL) [facility] <200 Desirable 721-525Vualoyumhs-pana >=240High Triglycerides (mg/dL) <150 Normal 202-977Xcnnfgzijy-lgaf 200-499High >=500Very high HDL Cholesterol (mg/dL) <40Low (male) <40Low (female) LDL Cholesterol (mg/dL) <100 Optimal 100-129Near or above optimal 561-029Akrybajvgx-jndi 160-189High >=190Very high Risk Catergories that modify LDL goals. Risk CatergoriesLDL goal (mg/dL) CHD and CHD risk equivalent<100 (10-year risk >20%) Multiple (2+) risk factors <130 (10-year risk=<20%) 0-1 risk factors <160 (<10-year risk) Defining levels of lipids in metabolic syndrome Triglycerides>=150 mg/dL HDL Cholesterol Men<40 mg/dL Women<40 mg/dL Non-HDL cholesterol is a second target for therapy in persons with high triglycerides (>=200 mg/dL) Specimen Plasma specimen Performing Organization Address City/State/Zipcode Phone Number [facility] DEPARTMENT OF PATHOLOGY AND [address] [place] [address] GENOM[facility] MEDICINE [address] [address] after 01/27/2018 Advance Directives Patient has advance care planning documents on file. For more information, please contact:[address] [address]
[2019-01-28 18:50] LABS: Absolute Lymphocytes (CBC) 1.4 K/uL (0.7-4.9); Basophils % 0.8 % (0-1.3); Eosinophils % 2.7 % (0-4.4); Hematocrit 48.9 % (39.6-49.0); Monocytes % 5.5 % (3.3-12.3); RBC Red Blood Cell Count 4.93 M/uL (4.33-5.43)
[2019-01-28 18:56] LABS: Protime INR 1.1
[2019-01-28 19:13] LABS: ALT/SGPT 25 U/L (12-78); AST/SGOT 20 U/L (15-37); Albumin 3.1 g/dL (3.4-5.0); Alkaline Phosphatase 122 U/L (45-117); BUN Blood Urea Nitrogen 28 mg/dL (7-18); Bicarbonate 27 mmol/L (21-32); Bilirubin Direct 0.3 mg/dL (0-0.2); Glucose Level 221 mg/dL (74-106); Lipase 101 U/L (73-393); NT PRO-BNP 5757 pg/mL (<450); Potassium 4.6 mmol/L (3.5-5.1); Protein, Total 7.7 g/dL (6.4-8.2); Sodium Level 137 mmol/L (136-145); Troponin (Emerg Dept Use Only) < 0.02 ng/mL (0.0-0.045)
--- NOTE | 2019-01-28 19:17 | RAD REPORT ---
EXAM DESCRIPTION: CT - Abdomen Pelvis Wo Contrast - 01/28/2019 6:56 pm CLINICAL HISTORY: Abdominal pain COMPARISON: None TECHNIQUE: Computed axial tomography of the abdomen and pelvis was obtained. IV and oral contrast we re not requested. All CT scans are performed using dose optimization technique as appropriate and may include automated exposure control or mA/KV adjustment according to patient size. FINDINGS: The evaluation of solid organs, vessels and bowel is limited secondary to the lack of con trast administration. A 24 millimeter peripherally calcified cystic mass dome of the liver Spleen, pancreas, adrenals and kidneys appear grossly normal. The appendix is normal. There is no evidence of diverticulitis. Spondylosis involves lumbar spine resulting spinal stenosis 3.3 centimeter saccular infrarenal abdominal aortic aneurysm Moderate tree-in-bud opacities left lower lobe Coronary arterial calcifications IMPRESSION: 3.3 centimeter abdominal aortic aneurysm 24 millimeter hepatic mass probably benign. Follow-up ultrasound 6 months recommended for re-evaluati on Moderate tree-in-bud opacities left lower lobe probably indicating an atypical infection
--- NOTE | 2019-01-28 20:08 | EKG ---
Test Date: 2019-01-28 Test Time: 18:24:40 Network Manager: STEPHANY MEASUREMENT RESULTS: Intervals: Rate: 115 NM: 178 QRSD: 98 QT: 330 QTc: 456 Grant: P: 38 NM: 178 QRS: 120 T: -73 INTERPRETIVE STATEMENTS: Sinus tachycardia Possible Left atrial enlargement Right axis deviation ST & T wave abnormality, consider inferior ischemia ST & T wave abnormality, consider anterolateral ischemia Abnormal ECG Compared to ECG 10/19/2018 13:06:48 Left posterior fascicular block now present Sinus rhythm no longer present Myocardial infarct finding no longer present Prolonged QT interval no longer present Electronically Signed On 01-28-19 20:07:58 CDT by Freddy Villatoro
--- NOTE | 2019-01-28 20:10 | RAD REPORT ---
EXAM DESCRIPTION: Derekt Single View01/28/2019 7:35 pm CLINICAL HISTORY: Chest pain COMPARISON: CT abdomen January 28, 2019 FINDINGS: Left basilar opacities are better seen on the CT scan on the same date. Right lung appears clear Heart is moderately enlarged IMPRESSION: Left basilar pneumonia
--- NOTE | 2019-01-28 20:22 | ER ---
Nurse's Notes [facility] Name: Bj Mills Age: 78 yrs Sex: Male : 1940 Arrival Date: 01/28/2019 Time: 18:26 Bed 6 Private MD: Diagnosis: Pneumonia Presentation: 01/28 18:27 Presenting complaint: EMS states: abd pain and chest pain X 2 days, also c/o iw constipation, states he just doesn't feel good , rates pain 7/10. Transition of care: patient was not received from another setting of care. Onset of symptoms was January 26, 2019. Risk Assessment: Do you want to hurt yourself or someone else? Patient reports no desire to harm self or others. Initial Sepsis Screen: Does the patient meet any 2 criteria? HR > 90 bpm. Does the patient have a suspected source of infection? No. Patient's initial sepsis screen is negative. Care prior to arrival: Medication(s) given: ASA, 81 mg, x 3, Nitroglycerin, IV initiated. 20 GA, in the left wrist, Oxygen administered. via nasal cannula. 18:27 Method Of Arrival: EMS iw 18:27 Method Of Arrival: EMS: [facility] iw 18:27 Acuity: SIMRAN 2 iw Historical: - Allergies: 18:39 No Known Allergies; iw - Home Meds: 18:30 aspirin 81 mg Oral chew 1 tab once daily [Active]; citalopram 20 mg tab 1 tab once iw daily [Active]; fentanyl 50 mcg/hr Topical pt72 1 patch every 72 hours [Active]; glimepiride 4 mg Oral tab 1 tab once daily [Active]; isosorbide mononitrate 60 mg Oral Tb24 1 tab once daily [Active]; metoprolol tartrate 50 mg Oral tab 25 mg 2 times per day [Active]; [place] 10-325 mg Oral tab 1 tab twice a day [Active]; Plavix 75 mg Oral tab 1 tab once daily [Active]; 18:39 torsemide 20 mg oral tab 1 tab once daily [Active]; atorvastatin 80 mg oral tab 1 tab iw once daily [Active]; Novolin R Sub-Q 30 unit daily [Active]; - PMHx: 18:30 Diabetes - NIDDM; Hyperlipidemia; Hypertension; iw - PSHx: 18:30 None; iw - Immunization history:: Adult Immunizations not up to date. - Social history:: Smoking status: Patient/guardian denies using tobacco. - Ebola Screening: : Patient negative for fever greater than or equal to 101.5 degrees Fahrenheit, and additional compatible Ebola Virus Disease symptoms Patient denies exposure to infectious person Patient denies travel to an Ebola-affected area in the 21 days before illness onset No symptoms or risks identified at this time. - Family history:: not pertinent. - Hospitalizations: : No recent hospitalization is reported. Screenin:34 Abuse screen: Denies threats or abuse. Denies injuries from another. Nutritional iw screening: No deficits noted. Tuberculosis screening: No symptoms or risk factors identified. Fall Risk IV access (20 points). Assessment: 18:30 General: Appears in no apparent distress. uncomfortable, obese, well developed, sv Behavior is calm, cooperative, appropriate for age. Pain: Complains of pain in chest and abdomen Pain currently is 7 out of 10 on a pain scale. Pain began 2-3 days ago. Is intermittent. Neuro: Level of Consciousness is awake, alert, obeys commands, Oriented to person, place, time, situation, Moves all extremities. Speech is normal. Cardiovascular: Patient's skin is warm and dry. Pulses are 3+ in right radial artery and left radial artery. Respiratory: Reports shortness of breath Airway is patent Respiratory effort is even, unlabored, Respiratory pattern is symmetrical, tachypnea. GI: Abdomen is round obese, Abd is soft and non tender X 4 quads. Reports constipation. Derm: Skin is thin, with poor turgor Skin is normal. Musculoskeletal: Range of motion: intact in all extremities. 19:45 Reassessment: Patient request to sit up in chair; Uncomfortable with being in stretcher lp1 and requesting to have venturi mask removed; Patient transferred to wheelchair and nasal canula at 3L for comfort. Vital Signs: 18:29 BP 106 / 68; Pulse 105; Resp 20; Temp 99.1(TE); Pulse Ox 82% on R/A; Weight 120.2 kg; iw Height 6 ft. 3 in. (190.50 cm); Pain 7/10; 18:30 Pulse Ox 82% on R/A; sv 19:45 BP 137 / 64; Pulse 102; Resp 16; Pulse Ox 94% on 3 lpm NC; lp1 20:30 BP 107 / 91; Pulse 102; Resp 20; Pulse Ox 94% on 3 lpm NC; lp1 21:46 BP 101 / 62; Pulse 109; Resp 17 S; Temp 98.3(O); Pulse Ox 93% on 3 lpm NC; jd3 18:29 Body Mass Index 33.12 (120.20 kg, 190.50 cm) iw 18:30 Pt placed on O2 \T\ 3L per NC, O2 sat up to 88%. Pt placed on 50% Venturi mask, O2 sat up sv to 95%. ED Course: 18:26 Patient arrived in ED. iw 18:27 Deng Joseph MD is Attending Physician. rn 18:29 Triage completed. iw 18:30 Patient has correct armband on for positive identification. Bed in low position. Call sv light in reach. Side rails up X2. bus monitor on. Pulse ox on. NIBP on. Door closed. Head of bed elevated. 18:30 Initial lab(s) drawn, by me, sent to lab. First set of blood cultures drawn by me. sv Inserted saline lock: 20 gauge in right upper arm, using aseptic technique. Blood collected. Flushed right with 5 ml normal saline. 18:30 Maintain EMS IV. Dressing intact. Site clean \T\ dry. Gauge \T\ site: 20G Left FA. sv 18:34 Arm band placed on. iw 18:45 Second set of blood cultures drawn by me. sv 18:55 CT completed. Patient tolerated procedure well. Patient moved back from CT. mw3 18:56 Anabela Nieto RN is Primary Nurse. sv 18:56 Basic Metabolic Panel Sent. sv 18:57 CT Abd/Pelvis - Without Contrast In Process Unspecified. EDMS 19:01 Attending Physician role handed off by Deng Joseph MD ps1 19:01 Osito Escobar MD is Attending Physician. ps1 19:01 Patient moved back from CT. sv 19:08 Report given to Hardik THORNTON and Dior THORNTON. sv 19:15 Primary Nurse role handed off by Anabela Nieto RN sv 19:35 XRAY Chest (1 view): cough In Process Unspecified. EDMS 20:20 Lucian Marsh MD is Hospitalizing Provider. ps1 20:28 Soriano, Dior, RN is Primary Nurse. lp1 20:30 No provider procedures requiring assistance completed. Patient admitted, IV remains in lp1 place. Administered Medications: 21:04 Drug: Zosyn 3.375 grams Route: IVPB; Infused Over: 60 mins; Site: right upper arm; jd3 21:38 Follow up: IV Status: Completed infusion; IV Intake: 50ml lp1 21:05 Drug: LevaQUIN 750 mg Volume: 150 ml; Route: IVPB; Infused Over: 90 mins; Site: left jd3 wrist; 22:09 Follow up: IV Status: Infusion continued upon admission lp1 21:38 Drug: vancoMYCIN 500 mg Route: IVPB; Infused Over: 1 hrs; Site: right upper arm; lp1 22:09 Follow up: IV Status: Infusion continued upon admission lp1 Intake: 21:38 IV: 50ml; Total: 50ml. lp1 Outcome: 20:21 Decision to Hospitalize by Provider. ps1 20:30 Condition: stable lp1 20:30 Instructed on the need for admit. 22:09 Admitted to Tele accompanied by tech, family with patient, via wheelchair, room 424, lp1 with oxygen, with chart, Report called to HILLARY Coleman 22:28 Patient left the ED. aa1 Signatures: Dispatcher [employer] EDMS Anabela Nieto RN RN sv Autenrieth, Alissa, RN RN aa1 Chiquis De La Rosa RN RN iw Nieto, Roman, MD MD rn Pena, Laura, RN RN lp1 Hardik Sargent RN RN jd3 Singer, Phillip, MD MD ps1 Willis, Michelle 3 Corrections: (The following items were deleted from the chart) 18:34 18:29 BP 106 / 68; Pulse 105bpm; Resp 20bpm; Temp 99.1F Temporal; Pain 7/10; iw 18:39 18:30 Home Meds: furosemide 40 mg Oral tab 1 tab once daily; 18:39 18:30 Home Meds: lisinopril 5 mg Oral tab 1 tab once daily; 18:39 18:30 Home Meds: Novolin N 100 unit/mL Sub-Q susp twice a day; 18:39 18:30 Home Meds: simvastatin 20 mg Oral tab 1 tab once daily; 18:39 18:31 Allergies: No Known Allergies; iw 21:54 21:46 BP 101 / 62; Pulse 109bpm; Resp 17bpm; Spontaneous; Pulse Ox 93% 3 lpm Nasal jd3 Cannula; jd3 22:10 22:09 Admitted to Tele accompanied by ozzie, family with patient, via wheelchair, with lp1 oxygen, with chart, Report called to HILLARY Coleman lp1
--- NOTE | 2019-01-28 20:22 | EDPHYS ---
Physician Documentation [facility] Name: Bj Mills Age: 78 yrs Sex: Male : 1940 Arrival Date: 01/28/2019 Time: 18:26 Bed 6 Private MD: ED Physician Osito Escobar HPI: 01/28 18:30 This 78 yrs old Male presents to ER via EMS with complaints of Abdominal rn Pain, Chest Pain. 18:30 The patient or guardian reports chest pain that is located primarily in the substernal rn area. Onset: 3 day(s) ago. The pain does not radiate. Associated signs and symptoms: Pertinent positives: abdominal pain, cough, lightheadedness, shortness of breath. The chest pain is described as a heaviness. Duration: The patient or guardian reports multiple episodes, that are intermittent. Modifying factors: The symptoms are alleviated by NTG, the symptoms are aggravated by nothing. Severity of pain: At its worst the pain was mild in the emergency department the pain is unchanged. The patient has experienced similar episodes in the past. Reports "just doesn't feel well", began 3 days ago with chest and abd pain. States has chest pain about twice daily and is normal for him, has angina, takes NTG that helps. Today called 911 more for abd pain, LLQ, assoc with constipation, which he normally suffers from, no vomiting. Also reports non-productive cough that began this AM. EMS placed nitropaste which dropped BP, wiped off and BP improved. . Historical: - Allergies: 18:39 No Known Allergies; iw - Home Meds: 18:30 aspirin 81 mg Oral chew 1 tab once daily [Active]; citalopram 20 mg tab 1 tab once iw daily [Active]; fentanyl 50 mcg/hr Topical pt72 1 patch every 72 hours [Active]; glimepiride 4 mg Oral tab 1 tab once daily [Active]; isosorbide mononitrate 60 mg Oral Tb24 1 tab once daily [Active]; metoprolol tartrate 50 mg Oral tab 25 mg 2 times per day [Active]; [place] 10-325 mg Oral tab 1 tab twice a day [Active]; Plavix 75 mg Oral tab 1 tab once daily [Active]; 18:39 torsemide 20 mg oral tab 1 tab once daily [Active]; atorvastatin 80 mg oral tab 1 tab iw once daily [Active]; Novolin R Sub-Q 30 unit daily [Active]; - PMHx: 18:30 Diabetes - NIDDM; Hyperlipidemia; Hypertension; iw - PSHx: 18:30 None; iw - Immunization history:: Adult Immunizations not up to date. - Social history:: Smoking status: Patient/guardian denies using tobacco. - Ebola Screening: : Patient negative for fever greater than or equal to 101.5 degrees Fahrenheit, and additional compatible Ebola Virus Disease symptoms Patient denies exposure to infectious person Patient denies travel to an Ebola-affected area in the 21 days before illness onset No symptoms or risks identified at this time. - Family history:: not pertinent. - Hospitalizations: : No recent hospitalization is reported. ROS: 18:30 Constitutional: + fever and chills Eyes: Negative for injury, pain, redness, and cornetist, ENT: Negative for injury, pain, and discharge, Neck: Negative for injury, pain, and swelling, Cardiovascular: + chest pain Respiratory: + non-productive cough, + sob, negative for hemoptysis Abdomen/GI: + abd pain and constipation MS/Extremity: Negative for injury and deformity, Skin: Negative for injury, rash, and discoloration, Neuro: Negative for headache, numbness, tingling, and seizure. Exam: 18:30 Constitutional: Overweight male, tachypneic appears uncomfortable Head/Face: rn Normocephalic, atraumatic. ENT: dry MM Cardiovascular: tachycardic, regular Respiratory: + mild tachypnea with bibasilar crackles Abdomen/GI: soft, + mild LLQ tenderness, no rebound MS/ Extremity: Pulses equal, no cyanosis. Neurovascular intact. Full, normal range of motion. Equal circumference. Neuro: Awake and alert, GCS 15, oriented to person, place, time, and situation. Moves all 4 extremities with equal strength. Vital Signs: 18:29 BP 106 / 68; Pulse 105; Resp 20; Temp 99.1(TE); Pulse Ox 82% on R/A; Weight 120.2 kg; iw Height 6 ft. 3 in. (190.50 cm); Pain 7/10; 18:30 Pulse Ox 82% on R/A; sv 19:45 BP 137 / 64; Pulse 102; Resp 16; Pulse Ox 94% on 3 lpm NC; lp1 20:30 BP 107 / 91; Pulse 102; Resp 20; Pulse Ox 94% on 3 lpm NC; lp1 21:46 BP 101 / 62; Pulse 109; Resp 17 S; Temp 98.3(O); Pulse Ox 93% on 3 lpm NC; jd3 18:29 Body Mass Index 33.12 (120.20 kg, 190.50 cm) iw 18:30 Pt placed on O2 \\T\\ 3L per NC, O2 sat up to 88%. Pt placed on 50% Venturi mask, O2 sat up sv to 95%. MDM: 18:27 Patient medically screened. rn 18:59 ED course: Assumed care from Dr. Sorenson at shift change. Patient stable angina. CP x 2 ps1 days. Has a hx of diffuse CAD. Patient of [place]ator[place]. States he had a fever, cough recently. Pending labs and imaging. . 01/28 18:28 Order name: Basic Metabolic Panel rn 01/28 18:28 Order name: CBC with Diff; Complete Time: 18:59 rn 01/28 18:28 Order name: LFT's; Complete Time: 19:28 rn 01/28 18:28 Order name: NT PRO-BNP; Complete Time: 19:28 rn 01/28 18:28 Order name: PT-INR; Complete Time: 19:28 rn 01/28 18:28 Order name: Troponin (emerg Dept Use Only); Complete Time: 19:28 rn 01/28 18:28 Order name: XRAY Chest (1 view): cough; Complete Time: 20:15 rn 01/28 18:28 Order name: Creatinine for Radiology; Complete Time: 19:28 rn 01/28 18:28 Order name: Lipase; Complete Time: 19:28 rn 01/28 18:28 Order name: Blood Culture Adult (2) rn 01/28 18:29 Order name: Basic Metabolic Panel; Complete Time: 19:28 EDFL 01/28 18:30 Order name: CT Abd/Pelvis - Without Contrast; Complete Time: 19:28 rn 01/28 18:28 Order name: EKG; Complete Time: 18:30 rn 01/28 18:28 Order name: Cardiac monitoring; Complete Time: 18:56 rn 01/28 18:28 Order name: EKG - Nurse/Tech; Complete Time: 18:42 rn 01/28 18:28 Order name: IV Saline Lock; Complete Time: 18:42 rn 01/28 18:28 Order name: Labs collected and sent; Complete Time: 18:42 rn 01/28 18:28 Order name: O2 Per Protocol; Complete Time: 18:42 rn 01/28 18:28 Order name: O2 Sat Monitoring; Complete Time: 18:42 rn Administered Medications: 21:04 Drug: Zosyn 3.375 grams Route: IVPB; Infused Over: 60 mins; Site: right upper arm; jd3 21:38 Follow up: IV Status: Completed infusion; IV Intake: 50ml lp1 21:05 Drug: LevaQUIN 750 mg Volume: 150 ml; Route: IVPB; Infused Over: 90 mins; Site: left jd3 wrist; 22:09 Follow up: IV Status: Infusion continued upon admission lp1 21:38 Drug: vancoMYCIN 500 mg Route: IVPB; Infused Over: 1 hrs; Site: right upper arm; lp1 22:09 Follow up: IV Status: Infusion continued upon admission lp1 Disposition: 01/28/19 20:21 Hospitalization ordered by Lucian Marsh for Inpatient Admission. Preliminary diagnosis is Pneumonia. - Bed requested for Telemetry/MedSurg (Inpatient). - Status is Inpatient Admission. aa1 - Condition is Stable. - Problem is an ongoing problem. - Symptoms have worsened. UTI on Admission? No Signatures: Dispatcher [employer] EDMS Tatiana Pavon RN RN Haylie Bland RN RN aa1 Chiquis De La Rosa RN RN Deng Joseph MD MD rn Pena, Laura, RN RN lp1 Hardik Sargent RN RN jd3 Osito Escobar MD MD ps1 Corrections: (The following items were deleted from the chart) 18:39 18:30 Home Meds: furosemide 40 mg Oral tab 1 tab once daily; 18:39 18:30 Home Meds: lisinopril 5 mg Oral tab 1 tab once daily; 18:39 18:30 Home Meds: Novolin N 100 unit/mL Sub-Q susp twice a day; 18:39 18:30 Home Meds: simvastatin 20 mg Oral tab 1 tab once daily; 18:39 18:31 Allergies: No Known Allergies; iw iw 21:39 20:21 Hospitalization Ordered by Lucian Marsh MD for Inpatient Admission. Preliminary mw diagnosis is Pneumonia. Bed requested for Telemetry/MedSurg (Inpatient). Status is Inpatient Admission. Condition is Stable. Problem is an ongoing problem. Symptoms have worsened. UTI on Admission? No. ps1 22:28 21:39 01/28/2019 20:21 Hospitalization Ordered by Lucian Marsh MD for Inpatient aa1 Admission. Preliminary diagnosis is Pneumonia. Bed requested for Telemetry/MedSurg (Inpatient). Status is Inpatient Admission. Condition is Stable. Problem is an ongoing problem. Symptoms have worsened. UTI on Admission? No. mw
[2019-01-28] MEDS ORDERED: NA CHLORIDE 0.9% 250 ML ONE (21:02)
[2019-01-28] MEDS ORDERED: VANCOMYCIN 1 GM/VIAL ONE (21:02)
[2019-01-28] MEDS ORDERED: Levofloxacin 750mg IV 750 MG/150 ML BAG IV ONE (21:02)
[2019-01-28] MEDS ORDERED: PIPER/TAZO/NS 3.375gm 3.375 GM/100 ML BAG ONE (21:02)
[2019-01-29 01:30] VITALS: BMI 32.3
[2019-01-29] MEDS ORDERED: D50W 25 GM/50 ML SYRINGE IV PRN (07:32)
[2019-01-29] MEDS ORDERED: GLUCAGON 1 MG/VIAL IM PRN (07:32)
[2019-01-29] MEDS: INSULIN -REGULAR HUMAN 50 UNIT/0.5 ML ML SQ SCH ×4 (08:20→21:17)
[2019-01-29] MEDS ORDERED: ISOSORBIDE MONO SR 60 MG TAB PO PRN (08:21)
[2019-01-29] MEDS: CLOPIDOGREL 75 MG TABLET PO SCH (10:00)
[2019-01-29] MEDS: ASPIRIN 81 MG CHEWABLE TABLET PO SCH (10:00)
[2019-01-29] MEDS: TORSEMIDE 20 MG TAB PO SCH (10:00)
[2019-01-29] MEDS: HYDROCODONE/APAP 7.5/325 MG TAB PO SCH ×2 (10:01→21:16)
[2019-01-29] MEDS: CITALOPRAM 10 MG TABLET PO SCH (10:01)
[2019-01-29] MEDS: AZITHROMYCIN 250 MG TAB PO SCH (10:01)
[2019-01-29] MEDS: METOPROLOL XL 25 MG TAB PO SCH ×2 (10:02→21:16)
[2019-01-29 10:05] LABS: Urine Appearance CLEAR; Urine Bilirubin NEGATIVE (NEG); Urine Blood NEGATIVE (NEG); Urine Color YELLOW; Urine Glucose NEGATIVE (NEG); Urine Protein TRACE (NEG); Urine pH 7.5 (5.0-7.0)
[2019-01-29 10:09] LABS: Urine Microscopic Reflex NO UMIC
--- NOTE | 2019-01-29 12:30 | P.CNS ---
Date of Consult: 01/29/19 Reason for Consult: Possible pneumonia Chief Complaint: Complaining of lower extremity pain shortness of breath chest discomfort History of Present Illness: Patient is 78 years of age a very poor historian currently is been having problems for the past 2 weeks has been having some shortness of breath chest discomfort main problem seems to be the pain in both his feet patient is a diabetic presumed diabetic neuropathy he has never smoked no prior history of cardiopulmonary problems does not see any specialist about from his primary care doctor not sure if he had some hemoptysis is CT scan of the abdomen did show a left lower lobe infiltrate patient has underlying dementia Allergies No Known Allergies Allergy (Verified 10/19/18 15:12) Home Medications: Aspirin Chewable [Aspirin Chewable*] 81 mg PO DAILY 10/19/18 Citalopram Hydrobromide [Citalopram HBr] 20 mg PO DAILY 10/19/18 Clopidogrel Bisulfate [Plavix] 75 mg PO DAILY 10/19/18 Glimepiride [Amaryl] 4 mg PO BID 10/19/18 Insulin NPH Human [Novolin N (Humulin N)*] 30 units SQ DAILY AT SUPPER Isosorbide Mononitrate [Isosorbide Mononitrate ER] 60 mg PO DAILY PRN 10/19/18 Metoprolol Succinate [Toprol Xl] 12.5 mg PO BID 10/19/18 fentaNYL [Duragesic] 25 mcg TD EVERY 3RD DAY 10/19/18 Acetaminophen/Diphenhydramine [Tylenol Pm Ex-Strength Caplet] 1 tab PO BEDTIME 01/29/19 Atorvastatin Calcium [Lipitor] 80 mg PO BEDTIME 01/29/19 Hydrocodone 7.5/APAP 325 [[place] 7.5/325 mg*] 1 tab PO BID 01/29/19 Torsemide [Demadex*] 20 mg PO DAILY 01/29/19 - Past Medical/Surgical History Diabetic: Yes -: Hyperlipidemia -: IDDM -: HTN -: Degenerative disc disease -: Chronic back pain -: CHF -: PR -: STENTs -: Home O2 3lpm continuous -: Dementia -: Angioplasty -: Bypass in Legs - Social History Alcohol use: No CD- Drugs: No Caffeine use: Yes Place of Residence: Home Review of Systems General: Weakness Respiratory: Cough, Shortness of Breath Cardiovascular: Chest Pain Musculoskeletal: Leg Pain Physical Examination Temp Pulse Resp BP Pulse Ox 97.1 F 81 18 90/56 L 94 01/29/19 12:00 01/29/19 12:00 01/29/19 12:00 01/29/19 12:00 01/29/19 12:00 General: Alert, Oriented x3 Neck: Supple Respiratory: Clear to auscultation bilaterally Cardiovascular: No edema, Regular rate/rhythm Gastrointestinal: Normal bowel sounds, Soft and benign Musculoskeletal: No clubbing, No swelling Integumentary: No rashes, No breakdown Laboratory Data (last 24 hrs) 01/28/19 18:30: Creatinine 1.46 H 01/28/19 18:30: PT 12.9 H, INR 1.10 01/28/19 18:30: WBC 11.3 H, Hgb 15.7, Hct 48.9, Plt Count 192 01/28/19 18:30: Sodium 137, Potassium 4.6, BUN 28 H, Creatinine 1.51 H, Glucose 221 H, Total Bilirubin 1.0, AST 20, ALT 25, Alkaline Phosphatase 122 H, Lipase 101 - Problems (1) Pneumonia Current Visit: Yes Status: Acute Plan: Patient is 78 years of age with a history of dementia a very poor historian admitted with lower extremity pain some chest discomfort cough possible mild hemoptysis is never smoked CT scan of the abdomen showed a possible left lower lobe infiltrate is white count is mildly elevated patient has chronic renal failure vital signs are stable he remains afebrile urinalysis shows trace protein and blood cultures are pending is not at risk for resistant infection patient received dose of levofloxacin Zosyn and vancomycin I have added Zithromax patient's chest x-rays clear Qualifiers: Pneumonia type: due to unspecified organism (2) Neuropathy Current Visit: Yes Status: Acute Plan: I suspect that he has peripheral neuropathy
[2019-01-29] MEDS ORDERED: MORPHINE 4 MG/ML SYR IV PRN (12:51)
--- NOTE | 2019-01-29 14:16 | RAD REPORT ---
EXAM DESCRIPTION: RAD - Chest Pa And Lat (2 Views) - 01/29/2019 2:07 pm CLINICAL HISTORY: Possible pneumonia Chest pain. COMPARISON: Chest Single View dated 01/28/2019; Chest Single View dated 10/19/2018; Chest Pa And Lat (2 Views) dated 10/04/2018; CHEST PA AND LAT 2 VIEW dated 09/04/2009 FINDINGS: The left basilar pneumonia appears slightly improved since the comparative study. The lung s are otherwise clear. The heart is mildly enlarged in size. No displaced fractures. IMPRESSION: Mild improvement in left basilar pneumonia.
--- NOTE | 2019-01-29 16:09 | ECHO ---
HEIGHT: 6 ft 3 in WEIGHT: 259 lb 1.6 oz DATE OF STUDY: 01/29/[address]: Ger Scott MD 2-DIMENSIONAL: YES M.MODE: YES DOPPLER: YES COLOR FLOW: YES TDS: NO PORTABLE: NO DEFINITY: NO BUBBLE STUDY: NO DIAGNOSIS: SHORTNESS OF BREATH CARDIAC HISTORY: CATHERIZATION: YES SURGERY: NO PROSTHETIC VALVE: NO PACEMAKER: NO MEASUREMENTS (cm) DIASTOLIC (NORMALS) SYSTOLIC (NORMALS) IVSd 1.1 (0.6-1.2) LA Diam 3.6 (1.9-4.0) LVEF 46% LVIDd 4.1 (3.5-5.7) LVIDs 3.1 (2.0-3.5) %FS 23% LVPWd 1.2 (0.6-1.2) Ao Diam 3.0 (2.0-3.7) 2 DIMENSIONAL ASSESSMENT: RIGHT ATRIUM: DILATED LEFT ATRIUM: DILATED RIGHT VENTRICLE: DILATED LEFT VENTRICLE: NORMAL TRICUSPID VALVE: NORMAL MITRAL VALVE: NORMAL PULMONIC VALVE: NORMAL AORTIC VALVE: SCLEROSIS PERICARDIAL EFFUSION: NONE AORTIC ROOT: NORMAL LEFT VENTRICULAR WALL MOTION: PARADOXICAL SEPTAL MOTION SEEN WITH RIGHT VENTRICLE PRESSURE OVERLOAD. DOPPLER/COLOR FLOW: MILD TRICUSPID REGURGITATION. ESTIMATED RIGHT VENTRICULAR SYSTOLIC PRESSURE 50 MMHG (MODERATE PULMONARY HYPERTENSION). COMMENTS: MILDLY DEPRESSED LEFT VENTRICULAR EJECTION FRACTION WITH PARADOX SEPTAL MOTION. DILATED LEFT ATRIUM, RIGHT ATRIUM, AND RIGHT VENTRICLE. AORTIC SCLEROSIS WITH NO AORTIC STENOSIS OR AORTIC REGURGITATION. MILD TRICUSPID REGURGITATION. MODERATE PULMONARY HYPERTENSION. TECHNOLOGIST: ARGELIA EHNDRICKS
[2019-01-29] MEDS: GLIMEPIRIDE 2 MG TABLET PO SCH (16:34)
[2019-01-29] MEDS ORDERED: ATORVASTATIN 80 MG TAB PO SCH (21:00)
--- NOTE | 2019-01-30 06:09 | HP ---
Date of Admission: 01/28/2019 Chief Complaint: Multiple include chest pain, abdominal pain, poor general health. History Of Present Illness: A 78-year-old male was brought by EMS because of multiple complaints, wh ich include chest pain, abdominal pain, constipation. Patient had ER evaluation and he was found to have pneumonia. Patient is admitted. 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 Past Medical History: Extensive includes history of type 2 diabetes; hypertension; severe coronary a rtery disease, inoperable as per the patient. He also has chronic pain management issues. He is on fentanyl and hydrocodone. Family History: Diabetes present. Personal History: Nonsmoker. Home Medicines: Please refer to the chart. Past Surgical History: Negative. Review of Systems: No history of fever, chills, rigors. Physical Examination: General: Revealed a 78-year-old male, not in acute distress. Vital Signs: Normal except for blood pressure of 100 systolic. HEENT: Otherwise negative. Neck: Supple. JVD negative. Chest: Wheezes bilaterally. Heart: Irregularity noted. Abdomen: No palpable mass. No focal tenderness. Bowel sounds decreased. Extremities: No edema. Laboratory Data: White count at admission 11.3. Chem profile; BUN 25, creatinine 1.5, troponin nega tive. BNP 5757. Assessment: 1.Pneumonia as documented on the chest x-ray. 2.Abdominal pain, constipation, nonsurgical aneurysm. 3.Severe carotid artery disease documented on the CAT during the last admission. 4.Type 2 diabetes, requiring insulin. 5.Hypertension. 6.Hyperlipidemia. Plan: Patient is seen by Pulmonary Service. He is on Zithromax. Patient has already on fentanyl an d Lortab ordered. According to the patient, he was not a candidate for any surgical interventions. He just wants pain medication and comfort measures. Since his blood pressure is low, no additional p ain medication will be administered. Patient is restarted on some of his home medications as well as insulin sliding scale. WILBER/ELIDA Voice ID: [id number]
[2019-01-30] MEDS: INSULIN -REGULAR HUMAN 50 UNIT/0.5 ML ML SQ SCH ×3 (08:29→16:43)
[2019-01-30] MEDS: GLIMEPIRIDE 2 MG TABLET PO SCH ×2 (08:30→16:44)
[2019-01-30] MEDS: TORSEMIDE 20 MG TAB PO SCH (08:31)
[2019-01-30] MEDS: HYDROCODONE/APAP 7.5/325 MG TAB PO SCH (08:31)
[2019-01-30] MEDS: ASPIRIN 81 MG CHEWABLE TABLET PO SCH (08:31)
[2019-01-30] MEDS: CITALOPRAM 10 MG TABLET PO SCH (08:32)
[2019-01-30] MEDS: METOPROLOL XL 25 MG TAB PO SCH (08:32)
[2019-01-30] MEDS: AZITHROMYCIN 250 MG TAB PO SCH (08:32)
[2019-01-30] MEDS: CLOPIDOGREL 75 MG TABLET PO SCH (08:32)
--- NOTE | 2019-01-30 08:57 | P.PN ---
Subjective Date of Service: 01/30/19 Chief Complaint: Pneumonia Subjective: Improving (Patient seems to be improving is still has some cough congestion cultures are so far negative) Review of Systems General: Weakness Respiratory: Cough, Shortness of Breath Physical Examination - Vital Signs Temperature: 97.7 F Blood Pressure: 118/70 Pulse: 93 Respirations: 16 Pulse Ox (%): 95 - Physical Exam General: Alert, Oriented x3 HEENT: Atraumatic Respiratory: Clear to auscultation bilaterally Cardiovascular: No edema, Regular rate/rhythm Assessment & Plan - Problems (Diagnosis) (1) Pneumonia Current Visit: Yes Status: Acute Plan: Doing better continue change to p.o. doxycycline due to possible interaction of Zithromax with citalopram resulting in QT prolongation Qualifiers: Pneumonia type: due to unspecified organism (2) Neuropathy Current Visit: Yes Status: Acute Plan: I suspect that he has peripheral neuropathy (3) Congestive heart failure (CHF) Current Visit: Yes Status: Acute Plan: Patient has congestive heart failure he does take torsemide at home hypoxic of oral room-air ABGs labs reviewed chronic renal failure BNP elevated Qualifiers: Heart failure type: systolic Discharge Plan: Home
[2019-01-30 09:59] LABS: Arterial Blood Carboxyhemoglob 1.8 % (0-1.5); Blood Gas Oxyhemoglobin 82.2 % (94-97)
[2019-01-30 20:38] VITALS: O2SAT 95
[2019-01-30 21:00] VITALS: BP 105/65; TEMP 97.7
[2019-01-31] MEDS ORDERED: FENTANYL 25 MCG/PATCH TD SCH (09:00)
--- NOTE | 2019-01-31 13:47 | CON ---
Date of Consultation: 01/30/2019 The patient was admitted to Dr. Marsh's service on 01/28/2019 for pneumonia on the left side. I saw the patient on 01/30/2019. Reason For Consultation: New finding of an abdominal aortic aneurysm. History Of Present Illness: Mr. Mills is a 78-year-old male, whom I had met before in the office, although I have not seen him for years. He came in with the pneumonia. He was being treated for th at. He also has abdominal pain. A CT that was done of the abdomen showed a 3.3 wide abdominal aorti c aneurysm, which is a new finding. The patient has no symptoms in that regard. He denied having an y chest pain. No shortness of breath, nausea, vomiting, or diaphoresis. No PND, orthopnea, pedal ed mundo, palpitations, or syncope. He is feeling good enough after his pneumonia treatment to go home to day. Past Medical History: Include diabetes, hypertension, dyslipidemia, inoperable coronary artery disea se. Allergies: NONE. Review of Systems: Negative. Social History: Negative. Family History: Noncontributory. Home Medications: Include Imdur, insulin, Lipitor, aspirin, glimepiride, torsemide, Plavix, and meto prolol. Physical Examination: General: Mr. Mills was very pleasant, no acute distress. Vital Signs: Stable. He was in sinus rhythm. HEENT: Negative. Neck: Supple without any lymphadenopathy, JVD, thyromegaly, or bruit. Chest: Clear to auscultation and percussion. Cardiac: Revealed a regular rhythm and rate with S4 gallops. No murmurs or rubs. Abdomen: Obese, but benign. Extremities: Revealed no clubbing, cyanosis, or edema. Skin: Dry and intact. Neurological: He was nonfocal. Pulses were present distally bilaterally in the dorsalis pedis and p osterior tibial. Diagnostic Data: He had an echocardiogram showing an ejection fraction of 46% paradoxical septum. Blood work was otherwise unremarkable. Impression And Plan: 1. coronary artery disease, fairly asymptomatic. 2.New finding of an abdominal aortic aneurysm of 3.3. No intervention was needed at this point. We will continue to follow him regarding the aneurysm. We should have a carotid Doppler and a Lexiscan done as an outpatient because of the following risk factors. I will make arrangements for that. 3. . 4.Chronic systolic congestive heart, mild with an ejection fraction of 46%. 5.Diabetes. 6.Dyslipidemia. 7. fairly controlled. 8.Pneumonia . NB/MODL Voice ID: [id number] Report ID: [id number]
== END 2019-01-30 20:30 | disposition home or self-care (01) | DRG 193 ==
LOC: ER 18:21 → ERHOLD 21:30 → 4TH 22:12
PROVIDERS: ADMIT Internal Medicine; ATTEND Internal Medicine
DX: J18.9 Pneumonia, unspecified organism (principal); I50.23 Acute on chronic systolic (congestive) heart failure; Z99.81 Dependence on supplemental oxygen; K59.00 Constipation, unspecified; I71.4 Abdominal aortic aneurysm, without rupture; I11.0 Hypertensive heart disease with heart failure; I25.10 Atherosclerotic heart disease of native coronary artery without angina pectoris; E78.5 Hyperlipidemia, unspecified; F03.90 Unspecified dementia, unspecified severity, without behavioral disturbance, psychotic disturbance, mood disturbance, and anxiety; E11.42 Type 2 diabetes mellitus with diabetic polyneuropathy; G89.29 Other chronic pain; M54.9 Dorsalgia, unspecified; I25.2 Old myocardial infarction; Z79.82 Long term (current) use of aspirin; Z79.4 Long term (current) use of insulin
CPT/HCPCS: 36415; 71045; 71046; 74176; 80048; 80061; 80076; 81003; 82805; 82962; 83690; 83880; 84484; 85025; 85610; 87040; 93005; 93306; 94760; 99285; J2543